=== PATIENT | female | born 1955 | race Caucasian/White ===

== ENCOUNTER 2019-09-27 17:19 | Emergency (ER) | payer MEDICARE, SELFPAY ==
--- NOTE | ~2019-09-27 | CT_ITS ---
EXAMINATION: CTA brain carotid EXAM DATE: 09/27/2019 18:54 INDICATION: Dizziness. TECHNIQUE: Noncontrast head CT. Spiral CTA of the carotid arteries was performed with intravenous i njection 100 cc of Omnipaque 350. Axial, coronal, sagittal reformatted images reviewed. Additional r eformatted images created on dedicated 3-D workstation. NASCET comparable standard used to assess th e degree of arterial stenosis. Spiral CT angiogram cerebral arteries performed with the same intrave nous injection of contrast. Source images of the brain CTA transferred to dedicated workstation for 3 -D rotational image creation. Coronal, sagittal maximum intensity pixel images also reviewed. The d ose-length product (DLP) for this examination was 1661.61 mGy-cm. The exposure was tailored accordi ng to patient size, and iterative reconstruction (ASIR) was used as additional dose reduction techniq ue. There is no prior study for comparison. FINDINGS: There is mild left carotid and minimal right carotid bulb arterial sclerosis, with 0% steno sis bilaterally. The vertebral arteries are codominant. There is right-sided posterior communicating artery dominant posterior cerebral artery. There is no carotid or vertebral basilar arterial disse ction or fibromuscular dysplasia. There are no cerebral artery aneurysms. There is symmetric cerebral artery arborization. The sagittal, transverse and sigmoid sinuses enhance normally, no venous sinus thrombosis. Internal cerebral veins also enhance normally. There is no acute intraparenchymal hemorrhage. No evidence of intraparenchymal brain mass lesion. N o evidence of acute infarction. There is mild periventricular and subcortical hypodensity, nonspecifi c but probably related to small vessel ischemic disease. There is intracranial carotid arterioscler osis. There is no mass effect or midline shift. There is no obstructive hydrocephalus suspected. T here are no extra-axial collections. There are no calvarial acute fractures. Moderate to severe cer vical disc disease. IMPRESSION: 1. No cervical arterial dissection or cerebral artery aneurysm. 2. Bilateral carotid 0% stenosis. Reviewed, dictated and finalized at location A.
[2019-09-27 17:22] VITALS: BP 164/75; PULSE 101; RESP 18; TEMP 36.9; O2SAT 97
[2019-09-27] MEDS: SODIUM CHLORIDE 0.9% IV 1,000 ML 999 ML IV CONT ×2 (17:56→18:50)
[2019-09-27] MEDS: MECLIZINE HCL 25 MG TABLET PO (17:59)
[2019-09-27 18:08] LABS: Basophils Absolute Auto 0.1 K/mm3 (0.0-0.1); Basophils Percent Auto 0.7 % (0.2-1.2); Eosinophils Absolute Auto 0.4 K/mm3 (0-0.3); Eosinophils Percent Auto 4.3 % (0-4.4); Hemoglobin 13.6 g/dL (12.0-15.0); Immature Granulocyte Absolute 0.02 K/mm3 (0.00-0.031); Immature Granulocyte Percent A 0.2 % (0-0.5); Lymphocytes Absolute Auto 2.29 K/mm3 (0.9-3.2); Lymphocytes Percent Auto 26.7 % (18.3-44.2); Mean Corpuscular HGB Conc 34.9 g/dl (32-36); Mean Corpuscular Hemoglobin 32.9 pg (26-34); Mean Corpuscular Volume 94.2 fl (80-100); Mean Platelet Volume 8.9 fl (7.4-10.4); Monocytes Absolute Auto 0.6 K/mm3 (0.1-0.6); Monocytes Percent Auto 7.3 % (2.6-8.5); Neutrophils Absolute Auto 5.2 K/mm3 (1.3-6.7); Neutrophils Percent Auto 60.8 % (45.5-73.1); Platelet Count Result 256 k/mm3 (150-375); Red Blood Count 4.14 M/mm3 (4.2-5.4); Red Cell Distribution Width 12.1 % (11.5-14.5); White Blood Count 8.6 K/mm3 (4.5-10.0)
[2019-09-27 18:19] LABS: Alanine Aminotransferase 23 U/L (4-35); Albumin Level 4.8 g/dL (3.5-5.1); Alkaline Phosphatase 97 U/L (38-126); Aspartate Amino Transferase 35 U/L (14-36); Bilirubin,Total 0.4 mg/dL (0.2-1.3); Blood Urea Nitrogen 28 mg/dL (7-17); Calcium 9.8 mg/dL (8.4-10.2); Carbon Dioxide 22 mmol/L (22-30); Chloride 107 mmol/L (98-107); Estimated CRCL calculation 61 ml/min; Estimated Glomerular Filt Rate > 60; Glucose 118 mg/dL (65-105); Potassium 3.9 mmol/L (3.4-5.0); Sodium 138 mmol/L (137-145)
--- NOTE | 2019-09-27 18:29 | ECG_ITS ---
Measurements Intervals [place] Rate: 95 P: 63 AK: 142 QRS: -14 QRSD: 86 T: 26 QT: 349 QTc: 440 Interpretive Statements SINUS RHYTHM POSSIBLE LEFT ATRIAL ENLARGEMENT DELAYED PRECORDIAL R/S TRANSITION BORDERLINE ECG Electronically Signed On 09-28-2019 7:10:28 CDT by Gumaro Ramirez D.O.
--- NOTE | 2019-09-27 18:34 | ED.DIZZY ---
HPI - Dizziness General Chief Complaint: Dizziness Stated Complaint: Hi BP Time Seen by Provider: 09/27/19 17:26 Source: patient Mode of arrival: ambulatory Limitations: no limitations History of Present Illness HPI Narrative: Patient is a 63-year-old female who presents to emergency department for evaluation of dizziness for the last 3 days patient notes intermittent dizziness with a sensation of the room spinning with associated nausea. Patient denies injury trauma does note she has had some left ear discomfort and pain and that the symptoms seem to be worse with looking to the left. Patient denies similar occurrence in the past. Patient on arrival to emergency department in no distress denying any pain. Patient has not taken anything further symptoms Related Data Home Medications Medication Instructions Recorded Confirmed Mirapex 09/27/19 Tumersaid 09/27/19 cholecalciferol (vitamin D3) 125 mcg PO DAILY 09/27/19 [Vitamin D3] naproxen sodium [Aleve] 220 mg PO Q12H 09/27/19 Allergies Allergy/AdvReac Type Severity Reaction Status Date / Time cortisone Allergy Joint Pain Verified 09/27/19 17:36 tetracycline Allergy Joint Pain Verified 09/27/19 17:36 Review of Systems Review of Systems: All systems reviewed & are unremarkable except as noted in HPI and below PMFSH Social History Social History Gender identity (if verbalized by the patient): Female Exam Narrative: Exam Narrative: GENERAL: Well-appearing, well-nourished, and in no acute distress. HEAD: Normocephalic, atraumatic. EYES: PERRLA and EOMI. ENT: Nares clear, no rhinorrhea or epistaxis. Mucous membranes moist. Oropharynx without tonsillar hypertrophy exudate or other lesions. Bilateral TMs pearly flowers nonbulging NECK: Supple. No adenopathy or masses. No carotid bruits or JVD CHEST: Clear to auscultation. No respiratory distress. No wheezes rales or rhonchi HEART: Regular rate and rhythm. No murmur heard. Normal peripheral pulses. ABDOMEN: Soft, nontender, nondistended EXTREMITIES: Normal range of motion. No edema. SKIN: Warm, dry, no rash. NEURO: No focal deficits. Alert and oriented x3. Cranial nerves II through XII grossly intact. Normal speech and gait PSYCH: Normal mood and affect. Course Course Emergency Course: Patient in the room in no distress aware of case findings treatment plan and diagnosis agreeing to follow-up as directed or to return if symptoms worsen or concerns Vital Signs Vital signs: Vital Signs Temperature 98.5 F 09/27/19 17:22 Pulse Rate 101 H 09/27/19 17:22 Respiratory Rate 18 09/27/19 17:22 Blood Pressure 164/75 H 09/27/19 17:22 Pulse Oximetry 97 09/27/19 17:22 Temperature 98.5 F 09/27/19 17:22 Pulse Rate 90 09/27/19 18:52 Respiratory Rate 20 09/27/19 18:52 Blood Pressure 133/62 09/27/19 18:52 Pulse Oximetry 99 09/27/19 18:52 MDM - Dizziness MDM Narrative Medical decision making narrative: Patient's dizziness is intermittent and mild in nature. There are no focal neurological deficits on exam. Subarachnoid hemorrhage is felt to be unlikey at this time. There is no history of fever, and neck is supple without meningismus, making meningitis unlikely. No traumatic history or signs of trauma on exam. Risk factors for CVA, risk factors reviewed. NO ocular signs on exam and in history to suggest acute glaucoma. Patients dizziness is felt to be a reasonable candidate for outpatient evaluation Lab Data Result diagrams: 09/27/19 18:02 09/27/19 18:02 Labs: Lab Results 09/27/19 09/27/19 09/27/19 Range/Units 18:02 18:02 18:02 WBC 8.6 (4.5-10.0) K/mm3 RBC 4.14 L (4.2-5.4) M/mm3 Hgb 13.6 (12.0-15.0) g/dL Hct 39.0 (37.0-47.0) % MCV 94.2 (80-100) fl MCH 32.9 (26-34) pg MCHC 34.9 (32-36) g/dl RDW 12.1 (11.5-14.5) % Plt Count 256 (150-375) k/mm3 M
[2019-09-27 18:52] VITALS: BP 133/62; PULSE 90; RESP 20; O2SAT 99
[2019-09-27 19:22] LABS: Troponin I < 0.012 ng/mL (0.000-0.034)
[2019-09-27 20:09] LABS: Add Urine Microscopic? YES; Appearance Urine Clear (Clear); Bilirubin Urine Negative (Negative); Blood Urine Negative (Negative); Color Urine Colorless (Yellow); Glucose Urine UA Negative (Negative); Ketones Urine Negative (Negative); Leukocyte Esterase Ur Trace LEU/UL (Negative); Nitrate Urine Negative (Negative); Protein Urine Negative (Negative); RBC Urine 0-2 /hpf (0-2); Squamous Epithelial Cell Urine Occasional /hpf (Few); Urobilinogen Urine Negative mg/dL (<2.0); WBC Urine 0-3 /hpf
[2019-09-27 20:10] LABS: Specific Grav Ur 1.033 (1.001-1.035)
--- NOTE | 2019-09-27 21:05 | PC.NURSE ---
2033 pt walked around nursed station tolerated well dizzy getting up and looking down other olea she was fine to walk
[2019-09-27 21:06] VITALS: BP 148/73; PULSE 84; RESP 20; O2SAT 98
== END 2019-09-27 21:07 | disposition home or self-care (01) ==
PROVIDERS: Emergency Medicine Emergency Medical Services; Emergency Provider Emergency Medicine; PCP Internal Medicine
DX: R42 Dizziness and giddiness (principal); R94.31 Abnormal electrocardiogram [ECG] [EKG]
CPT/HCPCS: 36415; 70496; 70498; 80053; 81001; 84484; 85025; 93005; 96361; 96374; 99284; A9270; J3360; J7030; Q9967

== ENCOUNTER 2019-09-29 06:54 | Outpatient (CLI) | payer MEDICARE, SELFPAY ==
--- NOTE | ~2019-09-29 | XR_ITS ---
EXAMINATION: XR knee LT 3V EXAM DATE: 09/29/2019 07:44 INDICATION: No known recent injury provided at this time. Pain of the left knee. TECHNIQUE: Three projections of the left knee. There is no prior study for comparison. FINDINGS: No evidence osteochondral defect or joint body in the left knee joint. There is moderate patellofemoral and medial tibiofemoral compartment primary osteoarthritis. There are no acute fractur es or dislocations identified. There is no subcutaneous gas. The soft tissue is unremarkable. The re are no radiopaque foreign bodies. IMPRESSION: Moderate left knee osteoarthritis. Reviewed, dictated and finalized at location B.
--- NOTE | ~2019-09-29 | XR_ITS ---
EXAMINATION: XR lumbar spine 2-3V EXAM DATE: 09/29/2019 07:44 INDICATION: No known recent injury provided at this time. Pain of the low back. TECHNIQUE: Lumber spine frontal, lateral, lateral L5-S1 projections for interpretation. There is no prior study for comparison. FINDINGS: Mild lumbar levoscoliosis. Mild diffuse lumbar disc disease. There is 3 mm anterolisthesis L4 on L5 and 2 mm anterolisthesis L2 on L3. There are small endplate osteophytes. Moderate lumbar fa cet arthropathy. No spondylolysis. No endplate erosive change. Sacrum, sacroiliac joints, sacral arcu ate lines are intact. Paraspinal soft tissue is unremarkable. IMPRESSION: Mild lumbar disc disease, moderate arthropathy. Reviewed, dictated and finalized at location B.
--- NOTE | ~2019-09-29 | XR_ITS ---
EXAMINATION: XR hip LT min 2V EXAM DATE: 09/29/2019 07:44 INDICATION: No known recent injury provided at this time. Pain of the left hip. TECHNIQUE: Left hip frontal, crosstable lateral and 'frog-leg' projections for interpretation. There is no prior study for comparison. FINDINGS: Smooth left hip femoral head contour, no radiographic evidence of avascular necrosis. Ther e is mild left hip primary osteoarthritis. There are no acute fractures or dislocations identified. There is no subcutaneous gas. The soft tissue is unremarkable. There are no radiopaque foreign bod ies. IMPRESSION: Mild left hip osteoarthritis. Reviewed, dictated and finalized at location B.
[2019-09-29 08:05] LABS: Hemoglobin A1C 5.9 % (<5.7)
[2019-09-29 08:07] LABS: Alanine Aminotransferase 22 U/L (4-35); Albumin Level 4.2 g/dL (3.5-5.1); Alkaline Phosphatase 93 U/L (38-126); Aspartate Amino Transferase 32 U/L (14-36); Bilirubin,Total 0.3 mg/dL (0.2-1.3); Blood Urea Nitrogen 22 mg/dL (7-17); Calcium 9.3 mg/dL (8.4-10.2); Carbon Dioxide 27 mmol/L (22-30); Chloride 108 mmol/L (98-107); Cholesterol 208 mg/dL (0-200); Estimated Glomerular Filt Rate > 60; Glucose 110 mg/dL (65-105); HDL Direct 39 mg/dL; Potassium 3.8 mmol/L (3.4-5.0); Sodium 142 mmol/L (137-145); Triglycerides 147 mg/dL (<150)
[2019-09-29 08:17] LABS: LDL Cholesterol Direct 130 mg/dL
[2019-09-29 08:34] LABS: Free T4 Free Thyroxine 1.04 ng/mL (0.78-2.19)
[2019-10-02 04:24] LABS: Insulin Level Total 9.8 uIU/mL (<=19.6)
[2019-10-02 05:44] LABS: Homocysteine 12.8 umol/L (<10.4)
== END 2019-09-29 06:55 | disposition home or self-care (01) ==
PROVIDERS: PCP Internal Medicine; Visit Provider Internal Medicine
DX: R73.9 Hyperglycemia, unspecified (principal); Z79.899 Other long term (current) drug therapy; Z13.220 Encounter for screening for lipoid disorders; Z82.49 Family history of ischemic heart disease and other diseases of the circulatory system; G25.81 Restless legs syndrome; M51.36 Other intervertebral disc degeneration, lumbar region; M17.12 Unilateral primary osteoarthritis, left knee; M16.12 Unilateral primary osteoarthritis, left hip
CPT/HCPCS: 36415; 72100; 73502; 73562; 80053; 80061; 82306; 83036; 83090; 83525; 84439; 84443

== ENCOUNTER 2019-10-02 08:17 | Outpatient (CLI) | payer MEDICARE, SELFPAY ==
--- NOTE | ~2019-10-02 | MM_ITS ---
EXAMINATION: MM screening [facility] BI w heraclio HISTORY: Screening mammogram TECHNIQUE: Craniocaudal and mediolateral oblique 3-D tomosynthesis images were obtained and synthetic 2-D images were generated. CAD analysis was submitted and interpreted. COMPARISON: No prior mammogram is available for comparison at this institution. BREAST PARENCHYMAL COMPOSITION: There are scattered areas of fibroglandular density. FINDINGS: There is no mammographic evidence for malignancy in the left breast. There are focal asymme tries in the upper outer quadrant of the right breast. IMPRESSION: 1. Focal right breast asymmetries, upper outer quadrant. 2. Additional mammographic views and possible breast ultrasound are recommended. BI-RADS Category 0: Incomplete: Needs additional imaging evaluation. Reviewed, dictated and finalized at location A. IMPRESSION: 1. Focal right breast asymmetries, upper outer quadrant. 2. Additional mammographic views and possible breast ultrasound are recommended . BI-RADS Category 0: Incomplete: Needs additional imaging evaluation.
== END 2019-10-02 08:18 | disposition home or self-care (01) ==
LOC: ANHIMG 08:21
PROVIDERS: PCP Internal Medicine; Visit Provider Internal Medicine
DX: Z12.31 Encounter for screening mammogram for malignant neoplasm of breast (principal); R92.8 Other abnormal and inconclusive findings on diagnostic imaging of breast
CPT/HCPCS: 77063; 77067

== ENCOUNTER 2019-10-16 12:45 | Outpatient (CLI) | payer MEDICARE, SELFPAY ==
--- NOTE | ~2019-10-16 | MMUS_ITS ---
EXAMINATION: MM diagnostic himanshu RT w heraclio, US breast RT limited HISTORY: Right breast asymmetries on screening mammogram TECHNIQUE: Additional 3-D tomosynthesis images of the right breast were performed and synthetic 2-D i mages were generated. CAD analysis was submitted and interpreted. High resolution limited right breas t ultrasound was performed. COMPARISON: 10/02/2019 FINDINGS: MAMMOGRAPHIC FINDINGS: No definite persistent asymmetry is identified with spot compression views of the right breast. There is no suspicious calcification or architectural distortion. ULTRASOUND: A 4 mm cyst is present at the 12:00 location 4 cm from the nipple. There is a benign-appearing intram ammary lymph node at the 11:00 location 6 cm from the nipple which measures 14 mm x 9 mm. No suspicio us cystic or solid mass is identified. IMPRESSION: 1. No mammographic or sonographic evidence of malignancy. 2. Recommend routine screening mammography in one year. BI-RADS Category 2: Benign finding(s). Reviewed, dictated and finalized at location A. IMPRESSION: 1. No mammographic or sonographic evidence of malignancy. 2. Recommend routine screening mammography in one year. BI-RADS Category 2: Benign finding(s).
== END 2019-10-16 12:46 | disposition home or self-care (01) ==
PROVIDERS: PCP Internal Medicine; Visit Provider Internal Medicine
DX: R92.8 Other abnormal and inconclusive findings on diagnostic imaging of breast (principal)
CPT/HCPCS: 76642; 77061; 77065; G0279

== ENCOUNTER 2019-12-18 06:50 | Outpatient (CLI) | payer MEDICARE, SELFPAY ==
[2019-12-18 07:15] LABS: Potassium 4.2 mmol/L (3.4-5.0)
[2019-12-18 07:25] LABS: Anion Gap 5 mmol/L (8-16); Blood Urea Nitrogen 19 mg/dL (7-17); Calcium 9.4 mg/dL (8.4-10.2); Carbon Dioxide 30 mmol/L (22-30); Chloride 104 mmol/L (98-107); Cholesterol 207 mg/dL (0-200); Estimated Glomerular Filt Rate > 60; Glucose 109 mg/dL (65-105); HDL Direct 45 mg/dL; Sodium 139 mmol/L (137-145); Triglycerides 259 mg/dL (<150)
[2019-12-18 07:26] LABS: LDL Cholesterol Direct 117 mg/dL
== END 2019-12-18 06:51 | disposition home or self-care (01) ==
PROVIDERS: PCP Internal Medicine; Visit Provider Internal Medicine
DX: E78.2 Mixed hyperlipidemia (principal); Z79.899 Other long term (current) drug therapy
CPT/HCPCS: 36415; 80048; 80061

== ENCOUNTER 2020-01-30 07:01 | Outpatient (CLI) | payer MEDICARE, SELFPAY ==
--- NOTE | ~2020-01-30 | XR_ITS ---
EXAMINATION: XR lumbar spine 6V w bending, XR pelvis 1-2V DATE: 01/30/2020 07:32 INDICATION: Low back and bilateral leg pain TECHNIQUE: 1. Anteroposterior, lateral in neutral, flexion and extension, bilateral oblique and cone-down latera l lumbosacral views of the lumbar spine were obtained. COMPARISON: 09/29/2019 FINDINGS: Lumbar spine: Unchanged mild lumbar levocurvature. 4 mm anterolisthesis L4 on L5 which decreases to 2 mm with both flexion and extension. 2 mm anterolisthesis L3 on L4 which is unchanged with flexion and extension. V ertebral body heights are normal. Mild to moderate right-sided predominant disc height loss at L2-L3 through L4-L5 and mild disc height loss at L1-L2. No pars interarticularis defects. Severe facet oste oarthritis on the right at L3-L4 and bilaterally at L4-L5 and L5-S1. Mild to moderate facet osteoarth ritis the remainder of the lumbar spine. Small calcification projecting over the liver likely sequela of old granulomatous disease versus less likely a gallstone. Pelvis: Pelvic alignment is normal. No fracture or suspected avascular necrosis. Minimal osteoarthritis at th e bilateral hip and sacroiliac joints. Small enthesophytes along the anterior iliac crests and at the bilateral greater trochanters.. IMPRESSION: 1. Moderate lumbar spondylosis. Reviewed, dictated and finalized at location B. IMPRESSION: 1. Moderate lumbar spondylosis.
[2020-01-30 08:14] LABS: Hemoglobin A1C 5.6 % (<5.7)
[2020-01-30 08:22] LABS: Cholesterol 229 mg/dL (0-200); HDL Direct 46 mg/dL; Triglycerides 173 mg/dL (<150)
[2020-01-30 08:33] LABS: LDL Cholesterol Direct 139 mg/dL
== END 2020-01-30 07:02 | disposition home or self-care (01) ==
PROVIDERS: PCP Internal Medicine; Visit Provider Internal Medicine
DX: R73.03 Prediabetes (principal); E78.2 Mixed hyperlipidemia; M54.42 Lumbago with sciatica, left side; G89.29 Other chronic pain; M47.896 Other spondylosis, lumbar region
CPT/HCPCS: 36415; 72114; 72170; 80061; 83036

== ENCOUNTER 2020-02-01 09:30 | Outpatient (CLI) | payer MEDICARE, SELFPAY ==
[2020-02-01 10:04] LABS: CRP 1.2 mg/dL (<1.0)
[2020-02-01 10:05] LABS: Rheumatoid Factor < 8.6 IU/ML (<12)
[2020-02-01 11:09] LABS: Erythrocyte Sedimentation Rate 37 mm/hr (0-20)
[2020-02-05 11:42] LABS: Anti Cyclic Citrullinated Pept <16 Units (<20)
== END 2020-02-01 09:31 | disposition home or self-care (01) ==
LOC: ANHLAB 09:32
PROVIDERS: PCP Internal Medicine; Visit Provider Internal Medicine
DX: M13.0 Polyarthritis, unspecified (principal); M54.16 Radiculopathy, lumbar region
CPT/HCPCS: 36415; 85652; 86140; 86200; 86430

== ENCOUNTER 2021-04-30 06:58 | Outpatient (CLI) | payer MEDICARE, SELFPAY ==
[2021-04-30 07:55] LABS: Basophils Percent Auto 0.5 % (0.2-1.2); Eosinophils Absolute Auto 0.2 K/mm3 (0-0.3); Eosinophils Percent Auto 3.3 % (0-4.4); Hematocrit 37.9 % (37.0-47.0); Hemoglobin 12.9 g/dL (12.0-15.0); Immature Granulocyte Absolute 0.01 K/mm3 (0.00-0.031); Immature Granulocyte Percent A 0.2 % (0-0.5); Lymphocytes Absolute Auto 1.77 K/mm3 (0.9-3.2); Lymphocytes Percent Auto 29.1 % (18.3-44.2); Mean Corpuscular Volume 96.9 fl (80-100); Mean Platelet Volume 8.6 fl (7.4-10.4); Monocytes Absolute Auto 0.5 K/mm3 (0.1-0.6); Monocytes Percent Auto 8.4 % (2.6-8.5); Neutrophils Absolute Auto 3.6 K/mm3 (1.3-6.7); Neutrophils Percent Auto 58.5 % (45.5-73.1); Platelet Count Result 206 k/mm3 (150-375); Red Blood Count 3.91 M/mm3 (4.2-5.4); Red Cell Distribution Width 12.3 % (11.5-14.5); White Blood Count 6.1 K/mm3 (4.5-10.0)
[2021-04-30 08:16] LABS: Alanine Aminotransferase 31 U/L (4-35); Albumin Level 4.3 g/dL (3.5-5.1); Alkaline Phosphatase 93 U/L (38-126); Anion Gap 9 mmol/L (8-16); Aspartate Amino Transferase 36 U/L (14-36); Bilirubin,Total 0.4 mg/dL (0.2-1.3); Blood Urea Nitrogen 33 mg/dL (7-17); Calcium 9.6 mg/dL (8.4-10.2); Carbon Dioxide 28 mmol/L (22-30); Chloride 104 mmol/L (98-107); Cholesterol 207 mg/dL (0-200); Estimated Glomerular Filt Rate > 60; Glucose 111 mg/dL (65-110); HDL Direct 55 mg/dL; Potassium 4.7 mmol/L (3.4-5.0); Sodium 141 mmol/L (137-145); Triglycerides 102 mg/dL (<150)
[2021-04-30 08:27] LABS: LDL Cholesterol Direct 103 mg/dL
[2021-04-30 08:31] LABS: Hemoglobin A1C 5.7 % (<5.7)
[2021-04-30 09:38] LABS: Add Urine Microscopic? YES; Appearance Urine Clear (Clear); Bilirubin Urine Negative (Negative); Blood Urine 1+ (Negative); Color Urine Yellow (Yellow); Glucose Urine UA Negative (Negative); Ketones Urine Negative (Negative); Leukocyte Esterase Ur 2+ LEU/UL (Negative); Mucus Urine Rare /lpf; Nitrate Urine Negative (Negative); Protein Urine Negative (Negative); Specific Grav Ur 1.028 (1.001-1.035); Squamous Epithelial Cell Urine Few /hpf (Few); Urobilinogen Urine Negative mg/dL (<2.0); WBC Urine 16-20 /hpf
[2021-04-30 10:01] LABS: Free T4 Free Thyroxine 0.99 ng/mL (0.78-2.19); Vitamin D 25 Hydroxy 67.1 ng/mL
== END 2021-04-30 06:59 | disposition home or self-care (01) ==
PROVIDERS: PCP Internal Medicine; Visit Provider Internal Medicine
DX: R73.03 Prediabetes (principal); Z51.81 Encounter for therapeutic drug level monitoring; Z79.899 Other long term (current) drug therapy; E78.2 Mixed hyperlipidemia
CPT/HCPCS: 36415; 80053; 80061; 81001; 82306; 83036; 84439; 84443; 85025; 87086; 87088

== ENCOUNTER 2021-12-25 07:50 | Outpatient (CLI) | payer MEDICARE, SELFPAY ==
--- NOTE | ~2021-12-25 | MM_ITS ---
EXAMINATION: MM screening [facility] BI w heraclio HISTORY: Screening mammogram TECHNIQUE: Craniocaudal and mediolateral oblique 3-D tomosynthesis images were obtained and synthetic 2-D images were generated. CAD analysis was submitted and interpreted. COMPARISON: 10/16/2019, 10/02/2019, 02/11/2017 BREAST PARENCHYMAL COMPOSITION: There are scattered areas of fibroglandular density. FINDINGS: RIGHT BREAST: There is no suspicious mass, calcification, or architectural distortion to suggest michelle gnancy. There has been no significant interval change. LEFT BREAST: An asymmetry is present in the posterior third of the breast just below the nipple axis on the mediolateral oblique view. IMPRESSION: 1. Left breast asymmetry. 2. Additional mammographic views and possible breast ultrasound are recommended. BI-RADS Category 0: Incomplete: Needs additional imaging evaluation. Reviewed, dictated and finalized at location A. IMPRESSION: 1. Left breast asymmetry. 2. Additional mammographic views and possible breast ultrasound are recommended . BI-RADS Category 0: Incomplete: Needs additional imaging evaluation.
== END 2021-12-25 07:51 | disposition home or self-care (01) ==
PROVIDERS: PCP Internal Medicine; Visit Provider Internal Medicine
DX: Z12.31 Encounter for screening mammogram for malignant neoplasm of breast (principal); R92.8 Other abnormal and inconclusive findings on diagnostic imaging of breast
CPT/HCPCS: 77063; 77067

== ENCOUNTER 2022-01-12 11:41 | Outpatient (CLI) | payer MEDICARE, SELFPAY ==
--- NOTE | ~2022-01-12 | MMUS_ITS ---
EXAMINATION: MM diagnostic himanshu LT w heraclio, US breast LT complete HISTORY: Follow-up left breast asymmetry TECHNIQUE: Additional 3-D tomosynthesis images of the left breast were performed and synthetic 2-D im ages were generated. CAD analysis was submitted and interpreted. High resolution complete left breast ultrasound was performed. COMPARISON: Comparison to multiple prior studies sequentially, with oldest reviewed study dated 12/2016. BREAST PARENCHYMAL COMPOSITION: Breast composed of scattered areas of fibroglandular density FINDINGS: MAMMOGRAPHIC FINDINGS: There are no suspicious masses, calcifications or architectural distortion in the left breast to sugg est malignancy. ULTRASOUND: Limited left breast ultrasound: Normal heterogeneous echotexture without focal solid or cystic mass. IMPRESSION: 1. No evidence for malignancy in the left breast. 2. Routine yearly screening mammogram and regular clinical breast examination are recommended. BI-RADS Category 1: Negative Reviewed, dictated and finalized at location A. IMPRESSION: 1. No evidence for malignancy in the left breast. 2. Routine yearly screening mammogram and regular clinical breast examination a re recommended. BI-RADS Category 1: Negative
== END 2022-01-12 11:42 | disposition home or self-care (01) ==
LOC: ANHIMG 11:43
PROVIDERS: PCP Internal Medicine; Visit Provider Internal Medicine
DX: R92.8 Other abnormal and inconclusive findings on diagnostic imaging of breast (principal)
CPT/HCPCS: 76641; 77061; 77065; G0279

== ENCOUNTER 2022-03-30 08:21 | Emergency (ER) | payer MEDICARE, SELFPAY ==
--- NOTE | ~2022-03-30 | XR_ITS ---
EXAMINATION: XR chest 2V DATE: 03/30/2022 08:51 INDICATION: Nonproductive cough TECHNIQUE: PA and lateral views of the chest were obtained. COMPARISON: None FINDINGS: Patchy airspace opacities in the right lower lung zone concerning for pneumonia. No pleural effusion or pneumothorax. Heart is normal with paracardial fat pads. Moderate thoracolumbar spondylosis. IMPRESSION: 1. Patchy airspace opacity in the right lower lung zone concerning for pneumonia with differential in cluding atelectasis. Reviewed, dictated and finalized at location A. RISK MANAGEMENT CONSULTANT IMPRESSION: 1. Patchy airspace opacity in the right lower lung zone concerning for pneumoni a with differential including atelectasis.
[2022-03-30 08:24] VITALS: BP 159/80; PULSE 89; RESP 16; TEMP 36.4; O2SAT 98
--- NOTE | 2022-03-30 08:44 | ECG_ITS ---
Measurements Intervals [place] Rate: 104 P: 62 [place]: 147 QRS: 12 QRSD: 72 T: 29 QT: 322 QTc: 424 Interpretive Statements SINUS TACHYCARDIA NONSPECIFIC ST ABNORMALITY BORDERLINE ECG COMPARED TO ECG 09/27/2019 17:28:31 HEART RATE HAS INCREASED Electronically Signed On 03-30-2022 16:55:40 HOT MOLDER by Brian Cox M.D.
--- NOTE | 2022-03-30 08:46 | ED.URI ---
HPI - URI/Sore Throat General Chief Complaint: Upper Respiratory Infection Stated Complaint: upper respiratory symptoms for a month Time Seen by Provider: 03/30/22 08:39 History of Present Illness HPI Narrative: Pt presents with cough and SOB with coughing for a month. Pt says she keeps thinking it will resolve but it hasn't. Pt denies CP or fever or exertional SOB mainly with cough. Pt denies Hx of CHF or any fluid retention or weight gain. Related Data Home Medications Medication Instructions Recorded Confirmed Tumersaid 09/27/19 06/23/21 cholecalciferol (vitamin D3) 125 125 mcg PO DAILY 09/27/19 06/23/21 mcg (5,000 unit) tablet (Vitamin D3) naproxen sodium 220 mg capsule 220 mg PO Q12H 09/27/19 06/23/21 (Aleve) pramipexole 1 mg tablet (Mirapex) 1 mg PO BID 09/28/19 06/23/21 cyanocobalamin (vitamin B-12) 1,000 mcg PO DAILY 10/02/19 06/23/21 1,000 mcg tablet (Vitamin B-12) Allergies Allergy/AdvReac Type Severity Reaction Status Date / Time cortisone Allergy Joint Pain Verified 03/30/22 08:38 tetracycline Allergy Joint Pain Verified 03/30/22 08:38 Review of Systems Review of Systems: All systems reviewed & are unremarkable except as noted in HPI and below PMFSH Past Medical History Medical History (Updated 03/30/22 @ 10:02 by Jorge Pulido III, ) BMI 34.0-34.9,adult BPPV (benign paroxysmal positional vertigo) Chronic low back pain with left-sided sciatica spondylosis rima L3/L4, L4/L5 facet osteoarthritis at L3/L4, L4/L5, L5/S1 Colonic polyp DJD (degenerative joint disease) Eczema Elevated homocysteine Encounter for Medicare annual wellness exam Encounter for routine adult health examination without abnormal findings Familial hypercholesterolemia History of kidney stones History of pneumonia History of tobacco abuse Per Dr. Prabhakar- Remote History Knee pain, left Mixed hyperlipidemia Narcolepsy Need for influenza vaccination On intermediate card tender drug therapy Polyarthritis Pre-diabetes Restless leg Skin cancer Statin intolerance Surgical History Surgical History History of fusion of cervical spine History of tonsillectomy Family History Family History Mother Diabetes mellitus CHF (congestive heart failure) Pacemaker Father Aneurysm Cerebrovascular accident Hx of CABG Social History Social History Years smoked: 25 Smoking status: Former smoker Smoking end date: 04/05/99 Gender identity (if verbalized by the patient): Female Exam Const: General: healthy appearing and no acute distress Nutritional Appearance: well nourished Orientation/consciousness: patient oriented x3 Limitations: no limitations HENMT: Head: normal to inspection Neck: Neck: normal visual inspection and no lymphadenopathy Chest: Chest palpation & inspection: normal inspection of the chest Resp: Effort & Inspection: normal respiratory effort Auscultation: crackles on the right Cardio: Rate: regular rate Rhythm: regular rhythm GI: GI Palp: Yes Soft to palpation and No Tenderness to palpation present (GI) Auscultation: normal bowel sounds Skin: General skin exam: normal color Neuro: General: patient oriented x3, moves all extremities and no focal motor deficits Cranial nerves: Yes Nystagmus not present Speech: normal speech Gait exam (Neuro): Normal gait present Extrem: General: normal to inspection and no clubbing, cyanosis or edema Psych: Mental Status: mental status grossly normal Affect: normal affect Attitude: cooperative Course Vital Signs Vital signs: Vital Signs Temperature 97.6 F 03/30/22 08:24 Pulse Rate 89 03/30/22 08:24 Respiratory Rate 16 03/30/22 08:24 Blood Pressure 159/80 H 03/30/22 08:24 Pulse Oximetry 98 03/30/22 08:24 Temperature 97.6 F 03/30/22 08:24 Pulse Rat
[2022-03-30 08:50] VITALS: PULSE 89; RESP 20
[2022-03-30] MEDS: IPRATROPIUM BR 0.02% INH SOLN 0.5 MG/2.5 ML VIAL INHALATION (08:55)
[2022-03-30] MEDS: ALBUTEROL SULFATE NEB 2.5 MG/3 ML INH 5 MG INHALATION (08:55)
[2022-03-30 09:10] LABS: Influenza A QL RT-PCR Negative (Negative); Influenza B QL RT-PCR Negative (Negative); SARS-CoV-2 RNA PCR Negative
[2022-03-30 09:10] LABS: Basophils Percent Auto 0.6 % (0.2-1.2); Eosinophils Absolute Auto 0.1 K/mm3 (0-0.3); Eosinophils Percent Auto 2.6 % (0-4.4); Hematocrit 38.1 % (37.0-47.0); Hemoglobin 12.8 g/dL (12.0-15.0); Immature Granulocyte Absolute 0.01 K/mm3 (0.00-0.031); Immature Granulocyte Percent A 0.2 % (0-0.5); Lymphocytes Absolute Auto 1.23 K/mm3 (0.9-3.2); Lymphocytes Percent Auto 24.5 % (18.3-44.2); Mean Corpuscular HGB Conc 33.6 g/dl (32-36); Mean Corpuscular Hemoglobin 33.1 pg (26-34); Mean Corpuscular Volume 98.4 fl (80-100); Mean Platelet Volume 8.6 fl (7.4-10.4); Monocytes Absolute Auto 0.6 K/mm3 (0.1-0.6); Monocytes Percent Auto 10.9 % (2.6-8.5); Neutrophils Absolute Auto 3.1 K/mm3 (1.3-6.7); Neutrophils Percent Auto 61.2 % (45.5-73.1); Platelet Count Result 160 k/mm3 (150-375); Red Blood Count 3.87 M/mm3 (4.2-5.4); Red Cell Distribution Width 12.7 % (11.5-14.5)
[2022-03-30 09:26] LABS: Alanine Aminotransferase 34 U/L (6-35); Albumin Level 4.4 g/dL (3.5-5.1); Alkaline Phosphatase 100 U/L (38-126); Anion Gap 6 mmol/L (8-16); Aspartate Amino Transferase 39 U/L (14-36); Bilirubin,Total 0.3 mg/dL (0.2-1.3); Blood Urea Nitrogen 20 mg/dL (7-17); Carbon Dioxide 26 mmol/L (22-30); Chloride 108 mmol/L (98-107); Estimated CRCL calculation 68 ml/min; Estimated Glomerular Filt Rate > 60; Glucose 101 mg/dL (65-110); Potassium 4.2 mmol/L (3.4-5.0); Sodium 140 mmol/L (137-145)
[2022-03-30 09:33] LABS: NT Pro B Type Natriuretic Pept 46 pg/mL (5-100)
[2022-03-30 09:42] VITALS: BP 150/81; PULSE 92; RESP 20; O2SAT 96
[2022-03-30 10:23] VITALS: BP 145/74; PULSE 96; RESP 20; O2SAT 97
== END 2022-03-30 10:25 | disposition home or self-care (01) ==
PROVIDERS: Emergency Provider Emergency Medicine; PCP Internal Medicine
DX: J18.9 Pneumonia, unspecified organism (principal); Z20.822 Contact with and (suspected) exposure to COVID-19; E78.01 Familial hypercholesterolemia; R73.03 Prediabetes; G25.81 Restless legs syndrome; Z98.1 Arthrodesis status; Z85.828 Personal history of other malignant neoplasm of skin; Z87.442 Personal history of urinary calculi; Z86.010 Personal history of colon polyps; Z87.891 Personal history of nicotine dependence; R00.0 Tachycardia, unspecified; R94.31 Abnormal electrocardiogram [ECG] [EKG]
CPT/HCPCS: 36415; 71046; 80053; 83880; 85025; 87636; 93005; 94640; 99283

== ENCOUNTER 2022-04-07 06:35 | Outpatient (CLI) | payer MEDICARE, SELFPAY ==
--- NOTE | ~2022-04-07 | XR_ITS ---
EXAMINATION: XR chest 2V DATE: 04/07/2022 14:13 INDICATION: Cough TECHNIQUE: PA and lateral views of the chest are obtained. COMPARISON: 03/30/2022 FINDINGS: Previously described right basilar airspace opacities persist but have improved. There are new airspace opacities of the left lung base. No pleural effusion or pneumothorax. The cardiomediasti nal silhouette is normal. There is moderate thoracic spondylosis. IMPRESSION: 1. Some persistent right basilar airspace opacities and new airspace opacities of the left lung base, likely pneumonia. Reviewed, dictated and finalized at location A. IATIVE SENIOR NP
[2022-04-07 07:42] LABS: Basophils Percent Auto 0.5 % (0.2-1.2); Eosinophils Absolute Auto 0.2 K/mm3 (0-0.3); Eosinophils Percent Auto 2.7 % (0-4.4); Hematocrit 37.2 % (37.0-47.0); Hemoglobin 12.6 g/dL (12.0-15.0); Immature Granulocyte Absolute 0.03 K/mm3 (0.00-0.031); Immature Granulocyte Percent A 0.4 % (0-0.5); Lymphocytes Absolute Auto 2.52 K/mm3 (0.9-3.2); Lymphocytes Percent Auto 29.8 % (18.3-44.2); Mean Corpuscular HGB Conc 33.9 g/dl (32-36); Mean Corpuscular Hemoglobin 33.2 pg (26-34); Mean Corpuscular Volume 98.2 fl (80-100); Mean Platelet Volume 8.1 fl (7.4-10.4); Monocytes Absolute Auto 0.6 K/mm3 (0.1-0.6); Monocytes Percent Auto 7.6 % (2.6-8.5); Platelet Count Result 226 k/mm3 (150-375); Red Blood Count 3.79 M/mm3 (4.2-5.4); Red Cell Distribution Width 12.4 % (11.5-14.5); White Blood Count 8.5 K/mm3 (4.5-10.0)
[2022-04-07 07:54] LABS: Alanine Aminotransferase 35 U/L (6-35); Alkaline Phosphatase 98 U/L (38-126); Anion Gap 6 mmol/L (8-16); Aspartate Amino Transferase 34 U/L (14-36); Bilirubin,Total 0.4 mg/dL (0.2-1.3); Blood Urea Nitrogen 19 mg/dL (7-17); Calcium 8.9 mg/dL (8.4-10.2); Carbon Dioxide 29 mmol/L (22-30); Chloride 107 mmol/L (98-107); Cholesterol 209 mg/dL (0-200); Estimated Glomerular Filt Rate > 60; Glucose 94 mg/dL (65-110); HDL Direct 44 mg/dL; Potassium 3.9 mmol/L (3.4-5.0); Sodium 142 mmol/L (137-145); Triglycerides 239 mg/dL (<150)
[2022-04-07 08:05] LABS: LDL Cholesterol Direct 111 mg/dL
[2022-04-07 08:32] LABS: Hemoglobin A1C 5.9 % (<5.7)
[2022-04-07 09:25] LABS: Free T4 Free Thyroxine 1.25 ng/mL (0.78-2.19); Vitamin D 25 Hydroxy 47.5 ng/mL
[2022-04-10 10:07] LABS: Apolipoprotein B 115 mg/dL (<90)
== END 2022-04-07 06:36 | disposition home or self-care (01) ==
PROVIDERS: PCP Internal Medicine; Visit Provider Internal Medicine
DX: R05.9 Cough, unspecified (principal); R91.8 Other nonspecific abnormal finding of lung field; E78.2 Mixed hyperlipidemia; E78.01 Familial hypercholesterolemia; R73.03 Prediabetes; Z13.21 Encounter for screening for nutritional disorder
CPT/HCPCS: 36415; 71046; 80053; 80061; 82172; 82306; 83036; 84439; 84443; 85025

== ENCOUNTER 2022-08-17 07:57 | Outpatient (CLI) | payer MEDICARE, SELFPAY ==
--- NOTE | ~2022-08-17 | NM_ITS ---
EXAMINATION: NM shar stress w perfusion DATE: 08/17/2022 12:22 INDICATION: Calcified coronary atherosclerosis. TECHNIQUE: Rest images were obtained following intravenous administration of 10.5 mCi Tc99m tetrofosm in (Myoview). The patient was infused intravenously with Lexiscan (regadenoson). Then, 33 mCi Tc99m t etrofosmin (Myoview) was administered intravenously, and stress images were obtained. Data was recons tructed into short axis and horizontal and vertical long axis SPECT images. Gated SPECT images were a lso obtained. COMPARISON: None. FINDINGS: There is no definite reversible or fixed perfusion abnormality to suggest ischemia or infar ction. There is no segmental wall motion abnormality. Left ventricular ejection fraction measures > 70%. IMPRESSION: 1. No definite ischemia or infarct. 2. Normal left ventricular ejection fraction measuring >70%. Reviewed, dictated and finalized at location A.
--- NOTE | 2022-08-17 08:08 | EST_ITS ---
Patient Info Name: Mary Guthrie Age: 66 years : 1955 Gender: Female Ht: 63 in Wt: 185 lbs BSA: 1.96 m2 Exam Date: 08/17/2022 9:07 AM Exam Location: [facility] Stress Patient Status: Outpatient Admit Date: 08/17/2022 Staff Ordering Physician: German Prabhakar MD Attending Provider: German Prabhakar MD Exercise Technologist: Shirin Camp RDCS Exercise Physician: Gumaro Ramirez DO Exam Type: CA stress shar w NM Study Info Indications R93.1 - Abnormal findings on diagnostic imaging of heart and coronary circulation A regadenoson stress test was performed. Summary 1. 1. Negative lexiscan stress test for ischemic ST changes by ECG criteria. 2. 2. Baseline hypertension. 3. 3. Nuclear scan to follow and will be reported separately. Please correlate with it. 4. 4. Patient informed of the above results. Protocol: Lexiscan Stress ECG Details Stage: REST Duration (min): 5 min : 19 sec HR (bpm): 66 SBP (mmHg): 148 DBP (mmHg): 88 Stage: REST Duration (min): 8 min : 11 sec HR (bpm): 75 SBP (mmHg): 148 DBP (mmHg): 88 Stage: STAGE 1 Duration (min): 1 min : 0 sec HR (bpm): 100 SBP (mmHg): 167 DBP (mmHg): 69 Stage: RECOVERY Duration (min): 1 min : 0 sec HR (bpm): 103 SBP (mmHg): 156 DBP (mmHg): 72 Stage: RECOVERY Duration (min): 2 min : 0 sec HR (bpm): 96 SBP (mmHg): 156 DBP (mmHg): 72 Stage: RECOVERY Duration (min): 3 min : 0 sec HR (bpm): 81 SBP (mmHg): 143 DBP (mmHg): 68 Stage: RECOVERY Duration (min): 3 min : 8 sec HR (bpm): 87 SBP (mmHg): 143 DBP (mmHg): 68 Rest HR: 75 bpm Peak HR: 106 bpm Rest Sys BP: 148 mmHg Peak Sys BP: 167 mmHg Max Pred HR: 152 bpm % Max Pred HR: 70 % Target HR: 129 bpm Max RPP: 17,702 bpm*mmHg Termination Reason: Completed protocol Cardiac Symptoms: None Total Time: 1 min : 0 sec Rest Beck BP: 88 mmHg Peak Beck BP: 69 mmHg Total Dose: 0.4 mg Resting ECG Sinus rhythm. Stress ECG No ST changes. Arrhythmias None. Report Signatures
== END 2022-08-17 07:58 | disposition home or self-care (01) ==
PROVIDERS: PCP Internal Medicine; Visit Provider Internal Medicine
DX: R93.1 Abnormal findings on diagnostic imaging of heart and coronary circulation (principal); I25.84 Coronary atherosclerosis due to calcified coronary lesion
CPT/HCPCS: 78452; 93017; A9502; J2785

== ENCOUNTER 2022-08-27 12:06 | Outpatient (CLI) | payer MEDICARE, SELFPAY ==
--- NOTE | ~2022-08-27 | XR_ITS ---
XR chest 2V 08/27/2022 12:26 Indication: Cough Procedure: 2 view chest Comparison: 04/07/2019 Findings: Heart size is normal. No focal air space disease, pulmonary edema, pleural effusion or susp ected pneumothorax. No acute osseous abnormality. There is mild thoracic spondylosis. Impression: 1: No acute cardiopulmonary disease. Reviewed, dictated and finalized at location L. Impression: 1: No acute cardiopulmonary disease.
[2022-08-27 12:35] LABS: Basophils Percent Auto 0.4 % (0.2-1.2); Eosinophils Absolute Auto 0.2 K/mm3 (0-0.3); Eosinophils Percent Auto 3.3 % (0-4.4); Hematocrit 37.7 % (37.0-47.0); Hemoglobin 12.5 g/dL (12.0-15.0); Immature Granulocyte Absolute 0.01 K/mm3 (0.00-0.031); Immature Granulocyte Percent A 0.1 % (0-0.5); Lymphocytes Absolute Auto 2.63 K/mm3 (0.9-3.2); Lymphocytes Percent Auto 35.6 % (18.3-44.2); Mean Corpuscular HGB Conc 33.2 g/dl (32-36); Mean Corpuscular Hemoglobin 32.7 pg (26-34); Mean Corpuscular Volume 98.7 fl (80-100); Mean Platelet Volume 8.2 fl (7.4-10.4); Monocytes Absolute Auto 0.4 K/mm3 (0.1-0.6); Monocytes Percent Auto 5.7 % (2.6-8.5); Neutrophils Absolute Auto 4.1 K/mm3 (1.3-6.7); Neutrophils Percent Auto 54.9 % (45.5-73.1); Platelet Count Result 189 k/mm3 (150-375); Red Blood Count 3.82 M/mm3 (4.2-5.4); White Blood Count 7.4 K/mm3 (4.5-10.0)
== END 2022-08-27 12:07 | disposition home or self-care (01) ==
PROVIDERS: PCP Internal Medicine; Visit Provider Internal Medicine
DX: R05.9 Cough, unspecified (principal)
CPT/HCPCS: 36415; 71046; 85025

== ENCOUNTER 2022-12-14 06:42 | Outpatient (CLI) | payer MEDICARE, SELFPAY ==
[2022-12-14 07:17] LABS: Basophils Percent Auto 0.7 % (0.2-1.2); Eosinophils Absolute Auto 0.2 K/mm3 (0-0.3); Eosinophils Percent Auto 3.8 % (0-4.4); Hematocrit 37.8 % (37.0-47.0); Hemoglobin 12.8 g/dL (12.0-15.0); Immature Granulocyte Absolute 0.01 K/mm3 (0.00-0.031); Immature Granulocyte Percent A 0.2 % (0-0.5); Lymphocytes Absolute Auto 1.58 K/mm3 (0.9-3.2); Lymphocytes Percent Auto 28.7 % (18.3-44.2); Mean Corpuscular HGB Conc 33.9 g/dl (32-36); Mean Corpuscular Hemoglobin 33.5 pg (26-34); Mean Platelet Volume 8.3 fl (7.4-10.4); Monocytes Absolute Auto 0.5 K/mm3 (0.1-0.6); Monocytes Percent Auto 9.6 % (2.6-8.5); Neutrophils Absolute Auto 3.1 K/mm3 (1.3-6.7); Platelet Count Result 197 k/mm3 (150-375); Red Blood Count 3.82 M/mm3 (4.2-5.4); Red Cell Distribution Width 12.3 % (11.5-14.5); White Blood Count 5.5 K/mm3 (4.5-10.0)
[2022-12-14 07:29] LABS: Alanine Aminotransferase 37 U/L (6-35); Albumin Level 4.4 g/dL (3.5-5.1); Alkaline Phosphatase 71 U/L (38-126); Anion Gap 7 mmol/L (8-16); Aspartate Amino Transferase 38 U/L (14-36); Bilirubin,Total 0.4 mg/dL (0.2-1.3); Blood Urea Nitrogen 29 mg/dL (7-17); Calcium 9.2 mg/dL (8.4-10.2); Carbon Dioxide 25 mmol/L (22-30); Chloride 109 mmol/L (98-107); Cholesterol 207 mg/dL (0-200); Estimated Glomerular Filt Rate > 60; Glucose 109 mg/dL (65-110); HDL Direct 46 mg/dL; Potassium 4.5 mmol/L (3.4-5.0); Sodium 141 mmol/L (137-145); Triglycerides 103 mg/dL (<150)
[2022-12-14 07:31] LABS: Hemoglobin A1C 5.5 % (<5.7)
[2022-12-14 07:40] LABS: LDL Cholesterol Direct 122 mg/dL
[2022-12-14 07:48] LABS: Free T4 Free Thyroxine 1.18 ng/mL (0.78-2.19)
[2022-12-14 09:18] LABS: Add Urine Microscopic? NO; Appearance Urine Clear (Clear); Bilirubin Urine Negative (Negative); Blood Urine Negative (Negative); Color Urine Yellow (Yellow); Glucose Urine UA Negative (Negative); Ketones Urine Negative (Negative); Leukocyte Esterase Ur Negative LEU/UL (Negative); Nitrate Urine Negative (Negative); Protein Urine Negative (Negative); Specific Grav Ur 1.021 (1.001-1.035); Urobilinogen Urine 0.2 mg/dL (<2.0)
[2022-12-17 04:03] LABS: Apolipoprotein B 108 mg/dL (<90)
== END 2022-12-14 06:43 | disposition home or self-care (01) ==
LOC: ANHLAB 06:44
PROVIDERS: PCP Internal Medicine; Visit Provider Internal Medicine
DX: E78.2 Mixed hyperlipidemia (principal); R73.03 Prediabetes; Z79.899 Other long term (current) drug therapy; Z13.29 Encounter for screening for other suspected endocrine disorder
CPT/HCPCS: 36415; 80053; 80061; 81003; 82172; 83036; 84439; 84443; 85025

== ENCOUNTER 2022-12-18 09:59 | Outpatient (CLI) | payer MEDICARE, SELFPAY ==
--- NOTE | ~2022-12-18 | US_ITS ---
EXAMINATION: US carotid duplex BI DATE: 12/18/2022 10:57 INDICATION: Essential hypertension. TECHNIQUE: Grayscale, color Doppler, and pulsed Doppler images of the cervical carotid arteries were obtained. The degree of vessel stenosis is placed in one of the following categories: normal, <50%, 5 0-69%, >=70% but less than near-occlusion, near-occlusion, or total occlusion. Note that percent sten osis relative to normal distal artery lumen diameter is indirectly measured from velocity measurement s as described by John, et al. Radiology 2003; 229:340-346. Notes: Normal: Peak systolic velocity <125 centimeters/sec and no plaque <50%. Peak systolic velocity <125 ( EDV <40; ICA/CCA PSV ratio <2.0; used these factors only a tandem lesions or low cardiac output or co ntralateral disease) 50-69 %: PSV 125-230 (EDV 40-100; ratio 2-4) >= 70% but less than near occlusion: PSV greater than 230 (EDV > 100; ratio> 4.0) Near Occlusion: PSV that is variable; markedly narrowed lumen Occlusion: Absent flow on color/spectral Doppler and no lumen on flowers scale. COMPARISON: None. FINDINGS: RIGHT: The right common carotid artery (CCA) peak systolic velocity (PSV) is 103 cm/s. The right internal ca rotid artery (ICA) PSV is 81 cm/s. The right ICA end-diastolic velocity (EDV) is cm/s. The right ICA/ CCA PSV ratio is 0.8. The external carotid artery (ECA) PSV is 77 cm/s. There is antegrade flow in th e right vertebral artery. LEFT: The left CCA PSV is 96 cm/s. The left ICA PSV is 110 cm/s. The left ICA EDV is 33 cm/s. The left ICA/ CCA PSV ratio is 1.. The ECA PSV is 94 cm/s. There is antegrade flow in the left vertebral artery. IMPRESSION: 1. Less than 50% stenosis in the right internal carotid artery by sonographic criteria. 2. Less than 50% stenosis in the left internal carotid artery by sonographic criteria. Reviewed, dictated and finalized at location B. IMPRESSION: 1. Less than 50% stenosis in the right internal carotid artery by sonographic foster mckeon. 2. Less than 50% stenosis in the left internal carotid artery by sonographic abdullahi murdock.
== END 2022-12-18 10:00 | disposition home or self-care (01) ==
PROVIDERS: PCP Internal Medicine; Visit Provider Internal Medicine
DX: I65.23 Occlusion and stenosis of bilateral carotid arteries (principal); I10 Essential (primary) hypertension
CPT/HCPCS: 93880

== ENCOUNTER 2023-01-20 08:28 | Outpatient (CLI) | payer MEDICARE, SELFPAY ==
--- NOTE | 2023-01-20 08:35 | ECHO_ITS ---
Patient Info Name: Mary Guthrie Age: 67 years : 1955 Gender: Female Ht: 63 in Wt: 183 lbs BSA: 1.95 m2 HR: 72 bpm BP: 135 / 79 mmHg Heart Rhythm: Sinus Rhythm Technical Quality: Good Exam Date: 01/20/2023 8:46 AM Exam Location: [facility] Pulmonary Patient Status: Outpatient Admit Date: 01/20/2023 Staff Ordering Physician: German Prabhakar MD Seed Potato Arranger: Miguelina Kauffman RDCS Attending Provider: German Prabhakar MD Referring Physician: Aki GUTIÉRREZ; Exam Type: CA echo doppler color flow Study Info Indications R07.89 - Other chest pain Complete two-dimensional, color flow and Doppler transthoracic echocardiogram is performed. Summary 1. Complete two-dimensional, color flow and Doppler transthoracic echocardiogram is performed. 2. Left ventricular chamber dimension is normal. 3. Left ventricular systolic function is normal, estimated at 60-65%. 4. The left ventricular diastolic function is grade I diastolic dysfunction. 5. E/e' 13 is mildly elevated. 6. Left atrial chamber dimension is mildly enlarged. 7. There is mild mitral valve regurgitation. 8. There is trace tricuspid valve regurgitation. 9. No pulmonary hypertension, estimated pulmonary arterial systolic pressure is 32 mmHg. 10. There is trace pulmonic regurgitation. Left Ventricle E/e' 13 is mildly elevated. Left ventricular chamber dimension is normal. Left ventricular systolic function is normal, estimated at 60-65%. The left ventricular diastolic function is grade I diastolic dysfunction. Right Ventricle Right ventricular systolic function is normal and with normal TAPSE 2.4 cm. Right ventricular chamber dimension is normal. Left Atria Left atrial chamber dimension is mildly enlarged. Right Atria Right atrial chamber dimension is normal. Aortic Valve The aortic valve is trileaflet. There is no aortic valve stenosis. There is no aortic valve regurgitation. Pulmonic Valve There is trace pulmonic regurgitation. Mitral Valve There is no mitral valve stenosis. There is mild mitral valve regurgitation. Tricuspid Valve There is trace tricuspid valve regurgitation. No pulmonary hypertension, estimated pulmonary arterial systolic pressure is 32 mmHg. Pericardium/Pleural There is no pericardial effusion. Inferior Vena Cava Normal inferior vena cava with >50% collapse upon inspiration consistent with normal right atrial pressure, 5 mmHg. Aorta The aortic root size at the sinus of Valsalva is normal. Left Ventricular Outflow Tract Name Value Normal LVOT 2D LVOT Diameter 1.9 cm LVOT Doppler LVOT Peak Gradient 6 mmHg LVOT Mean Gradient 2 mmHg LVOT VTI 22 cm LVOT VTI/AV VTI Ratio 0.8 LVOT Stroke Volume 61 ml LVOT CO 4.3 l/min LVOT CI 2.2 l/min/m2 Pulmonic Valve Name Value Normal RVOT Doppler
--- NOTE | 2023-01-22 15:44 | WPDHOLTEREM ---
Holter/Event Monitor Holter/Event Monitor Date of procedure: 01/20/23 Holter/Event Procedure: 48 Hr Holter Monitor Indications: Vision loss Conclusion: 1. 48 hour holter monitor on 01/20/23. 2. Underlying rhythm is sinus rhythm. HR range 52-136 bpm; average HR 92 bpm. 3. There are 3 premature supraventricular complexes and 1 supraventricular couplet. No supraventricular tachycardia. 4. There are 9 premature ventricular complexes. No ventricular tachycardia. 5. No sinoatrial or atrioventricular blocks. No significant pauses greater than 2 seconds. 6. Patient reports symptom of blurry vision which demonstrate sinus tachycardia at 102 bpm
== END 2023-01-20 08:29 | disposition home or self-care (01) ==
PROVIDERS: PCP Internal Medicine; Visit Provider Internal Medicine
DX: H54.7 Unspecified visual loss (principal); R07.89 Other chest pain; I10 Essential (primary) hypertension; Z82.49 Family history of ischemic heart disease and other diseases of the circulatory system; I34.0 Nonrheumatic mitral (valve) insufficiency
CPT/HCPCS: 93225; 93226; 93306

== ENCOUNTER 2023-02-22 09:55 | Emergency (ER) | payer MEDICARE, SELFPAY ==
[2023-02-22] VITALS (8 sets, daily range): BP systolic 138–147; BP diastolic 75–82; PULSE 68–84; RESP 12–20; TEMP 36.1–36.8; O2SAT 97–100
--- NOTE | ~2023-02-22 | CT_ITS ---
EXAMINATION: CTA brain carotid DATE: 02/22/2023 12:38 INDICATION: Headache. Facial tingling. Left face numbness. TECHNIQUE: Computed tomographic angiography (CTA) of the head was performed without and with 100 mL O mnipaque-350 intravenous contrast. CTA of the neck was performed with intravenous contrast. Automated exposure control and iterative reconstruction technique were employed. The dose-length product was 1 842.77 mGy-cm. Maximum intensity projection and volume rendered 3D-reconstructions were created by mesha harden technologist on a separate workstation. COMPARISON: CTA 09/27/2019 FINDINGS: HEAD CTA: There is no intracranial hemorrhage, acute infarction, or abnormal intracranial mass lesion . The ventricles are normal in size. There is mild mucosal thickening in the ethmoid sinuses. The mas toid air cells are normal. The orbits are normal. The vertebral arteries are codominant. There is no significant stenosis of basilar artery or the posterior cerebral arteries. The posterior communicatin g arteries are normal. There is no significant stenosis of the intracranial internal carotid arteries or anterior or middle cerebral arteries. Anterior communicating artery is normal. There is no aneury sm. NECK CTA: There are no pathologically enlarged lymph nodes. There are nodules in the thyroid measurin g up to 4 mm, likely not clinically significant. There is no significant stenosis of the vertebral ar teries. There is plaque in the proximal internal carotid arteries. There is 0% stenosis of the proxim al right internal carotid artery relative to normal distal artery lumen diameter (NASCET criteria). T here is 0% stenosis of the proximal left internal carotid artery relative to normal distal artery lum en diameter. There is severe cervical spondylosis. IMPRESSION: 1. Normal brain. No aneurysm or significant intracranial arterial stenosis. 2. 0% stenosis of the proximal internal carotid arteries relative to normal distal artery lumen diame ters (NASCET criteria). Reviewed, dictated and finalized at location E. BOX INSPECTOR IMPRESSION: 1. Normal brain. No aneurysm or significant intracranial arterial stenosis. 2. 0% stenosis of the proximal internal carotid arteries relative to normal dis himanshu artery lumen diameters (NASCET criteria).
--- NOTE | 2023-02-22 11:19 | PC.NURSE ---
Pt states headache woke up in the night 2 days ago with left facial numbness, pt took B/P 150/100. Upon arrival to ER pt c/o of numbness to left upper lip numbness. Facial movement symmetrical with no aphasia/dysphagia noted.
[2023-02-22] MEDS: KETOROLAC 15 MG/ML VIAL (*BKC) IV PUSH (11:44)
[2023-02-22 11:57] LABS: Basophils Percent Auto 0.5 % (0.2-1.2); Eosinophils Absolute Auto 0.2 K/mm3 (0-0.3); Eosinophils Percent Auto 2.6 % (0-4.4); Hematocrit 36.8 % (37.0-47.0); Hemoglobin 12.3 g/dL (12.0-15.0); Immature Granulocyte Absolute 0.01 K/mm3 (0.00-0.031); Immature Granulocyte Percent A 0.2 % (0-0.5); Lymphocytes Absolute Auto 1.88 K/mm3 (0.9-3.2); Lymphocytes Percent Auto 28.8 % (18.3-44.2); Mean Corpuscular HGB Conc 33.4 g/dl (32-36); Mean Corpuscular Hemoglobin 32.8 pg (26-34); Mean Corpuscular Volume 98.1 fl (80-100); Mean Platelet Volume 8.6 fl (7.4-10.4); Monocytes Absolute Auto 0.5 K/mm3 (0.1-0.6); Monocytes Percent Auto 8.1 % (2.6-8.5); Neutrophils Absolute Auto 3.9 K/mm3 (1.3-6.7); Neutrophils Percent Auto 59.8 % (45.5-73.1); Platelet Count Result 189 k/mm3 (150-375); Red Blood Count 3.75 M/mm3 (4.2-5.4); Red Cell Distribution Width 12.4 % (11.5-14.5); White Blood Count 6.5 K/mm3 (4.5-10.0)
[2023-02-22 12:06] LABS: Alanine Aminotransferase 38 U/L (6-35); Albumin Level 4.2 g/dL (3.5-5.1); Alkaline Phosphatase 87 U/L (38-126); Anion Gap 6 mmol/L (8-16); Aspartate Amino Transferase 42 U/L (14-36); Bilirubin,Total 0.5 mg/dL (0.2-1.3); Blood Urea Nitrogen 20 mg/dL (7-17); Calcium 9.5 mg/dL (8.4-10.2); Carbon Dioxide 26 mmol/L (22-30); Chloride 108 mmol/L (98-107); Estimated CRCL calculation 60 ml/min; Estimated Glomerular Filt Rate > 60; Glucose 89 mg/dL (65-110); Sodium 140 mmol/L (137-145)
--- NOTE | 2023-02-22 14:12 | ED.NEUROSD ---
HPI - Neuro Symptoms/Deficit General Chief Complaint: Neuro Symptoms/Deficit Stated Complaint: headache. left side facial numbness Time Seen by Provider: 02/22/23 10:18 History of Present Illness HPI Narrative: Patient is a 67-year-old female who presents ER with headache. Ongoing for the last couple days. Waxes and wanes in intensity. No thunderclap. Associated with tingling to left face. No facial droop or slurred speech. No recent infectious prodrome called her PCP and was referred here for further evaluation. Related Data Home Medications Medication Instructions Recorded Confirmed Tumersaid 09/27/19 12/25/22 cholecalciferol (vitamin D3) 125 125 mcg PO DAILY 09/27/19 12/25/22 mcg (5,000 unit) tablet (Vitamin D3) naproxen sodium 220 mg capsule 220 mg PO Q12H 09/27/19 12/25/22 (Aleve) cyanocobalamin (vitamin B-12) 1,000 mcg PO DAILY 10/02/19 12/25/22 1,000 mcg tablet (Vitamin B-12) aspirin 81 mg chewable tablet 81 mg PO DAILY 12/14/22 12/25/22 albuterol sulfate 2.5 mg/3 mL mg 02/22/23 (0.083 %) solution for nebulization colesevelam 625 mg tablet mg 02/22/23 folic acid 1 mg tablet 02/22/23 gabapentin 100 mg capsule mg 02/22/23 gabapentin 100 mg capsule mg 02/22/23 pramipexole 1 mg tablet mg 02/22/23 Allergies Allergy/AdvReac Type Severity Reaction Status Date / Time cortisone Allergy Joint Pain Verified 02/22/23 11:12 tetracycline Allergy Joint Pain Verified 02/22/23 11:12 MALKA Inhibitors AdvReac Severe Depression Verified 02/22/23 11:12 hydrochlorothiazide AdvReac Severe Depression Verified 02/22/23 11:12 statin intolerant Allergy Unknown leg pain Uncoded 02/22/23 11:12 Review of Systems Review of Systems: All systems reviewed & are unremarkable except as noted in HPI and below Constitutional: Constitutional: Denies chills, Denies fatigue and Denies fever(s) ENT: Denies nasal congestion and Denies sore throat Cardiovascular: Cardiovascular: Reports no additional cardiovascular complaints Respiratory: Respiratory: Reports no additional respiratory complaints Gastrointestinal: Gastrointestinal: Reports no additional gastrointestinal complaints Integumentary/Breasts: Skin/Breast: Denies erythema and Denies rash Neurologic: Denies syncope, Reports headache(s) and Denies focal weakness Comments: Left facial tingling PMFSH Past Medical History Medical History (Updated 02/22/23 @ 14:16 by Roney Redding MD) BMI 32.0-32.9,adult BMI 33.0-33.9,adult BMI 34.0-34.9,adult BPPV (benign paroxysmal positional vertigo) Chronic low back pain with left-sided sciatica spondylosis rima L3/L4, L4/L5 facet osteoarthritis at L3/L4, L4/L5, L5/S1 Colonic polyp Cough DJD (degenerative joint disease) Eczema Elevated homocysteine Encounter for Medicare annual wellness exam Encounter for routine adult health examination without abnormal findings Familial hypercholesterolemia FHx: heart disease Follow up History of kidney stones History of pneumonia History of tobacco abuse Per Dr. Prabhakar- Remote History Hypertension Knee pain, left Mixed hyperlipidemia Narcolepsy Need for influenza vaccination On lobsterman drug therapy Pneumonia Polyarthritis Pre-diabetes Restless leg Skin cancer Statin intolerance Visual loss Surgical History Surgical History History of fusion of cervical spine History of tonsillectomy Family History Family History Mother Diabetes mellitus CHF (congestive heart failure) Pacemaker Father Aneurysm Cerebrovascular accident Hx of CABG Other Shortness of breath Social History Social History Years smoked: 25 Smoking status: Former smoker Second hand tobacco smoke exposure: Yes Smoking end date: 04/05/99 Lack of Transportation: No Lack of Food: Never True Current Hous
== END 2023-02-22 14:25 | disposition home or self-care (01) ==
PROVIDERS: Emergency Provider Emergency Medicine; PCP Internal Medicine
DX: R51.9 Headache, unspecified (principal); I11.9 Hypertensive heart disease without heart failure; E78.2 Mixed hyperlipidemia; M19.90 Unspecified osteoarthritis, unspecified site; G25.81 Restless legs syndrome; Z87.01 Personal history of pneumonia (recurrent); Z85.828 Personal history of other malignant neoplasm of skin; Z87.442 Personal history of urinary calculi; Z86.010 Personal history of colon polyps; Z87.891 Personal history of nicotine dependence; Z98.1 Arthrodesis status
CPT/HCPCS: 36415; 70496; 70498; 80053; 85025; 96374; 99284; J1885; Q9967

== ENCOUNTER 2023-03-04 07:30 | Outpatient (CLI) | payer MEDICARE, SELFPAY ==
[2023-03-04 08:19] LABS: Alanine Aminotransferase 32 U/L (6-35); Albumin Level 4.5 g/dL (3.5-5.1); Alkaline Phosphatase 99 U/L (38-126); Anion Gap 9 mmol/L (8-16); Aspartate Amino Transferase 34 U/L (14-36); Bilirubin,Total 0.6 mg/dL (0.2-1.3); Blood Urea Nitrogen 25 mg/dL (7-17); Calcium 9.6 mg/dL (8.4-10.2); Carbon Dioxide 25 mmol/L (22-30); Chloride 107 mmol/L (98-107); Cholesterol 209 mg/dL (0-200); Estimated Glomerular Filt Rate > 60; Glucose 105 mg/dL (65-110); HDL Direct 55 mg/dL; Potassium 4.2 mmol/L (3.4-5.0); Sodium 141 mmol/L (137-145); Triglycerides 162 mg/dL (<150)
[2023-03-04 08:30] LABS: LDL Cholesterol Direct 112 mg/dL
== END 2023-03-04 07:31 | disposition home or self-care (01) ==
LOC: ANHLAB 07:32
PROVIDERS: PCP Internal Medicine; Visit Provider Internal Medicine
DX: E78.2 Mixed hyperlipidemia (principal)
CPT/HCPCS: 36415; 80053; 80061

== ENCOUNTER 2023-05-12 06:23 | Day surgery (SDC) | payer MEDICARE, SELFPAY ==
[2023-04-15 12:23] VITALS: BMI 33.3
[2023-04-23 09:47] VITALS: BMI 33.3
[2023-05-12 07:19] VITALS: BP 137/80; PULSE 70; RESP 14; TEMP 36.3; O2SAT 100
--- NOTE | 2023-05-12 07:46 | PM.HPGS ---
History of Present Illness History of Present Illness Consent: Risks, benefits, and alternatives have been discussed and questions answered. Patient agrees to proceed with procedure. Chief complaint: History of colon polyps Narrative: Mary Guthrie is a 67 year old female presents for screening colonoscopy. Patient was found to have 3 colon polyps at previous colonoscopy 3 years ago performed to [facility]. Patient is these were benign. She reports that her bowel habits are normal. Patient denies abdominal pain. She has had no bleeding. Family history is noncontributory. Review of Systems Review of Systems: Review of systems noncontributory. [facility] Past Medical History Medical History (Updated 03/08/23 @ 09:27 by Ana Lilia Ballesteros CMA) BMI 32.0-32.9,adult BMI 33.0-33.9,adult BMI 34.0-34.9,adult BPPV (benign paroxysmal positional vertigo) Chronic low back pain with left-sided sciatica spondylosis rima L3/L4, L4/L5 facet osteoarthritis at L3/L4, L4/L5, L5/S1 Colon cancer screening Colonic polyp Cough DJD (degenerative joint disease) Eczema Elevated homocysteine Encounter for Medicare annual wellness exam Encounter for routine adult health examination without abnormal findings Episodic headache Familial hypercholesterolemia FHx: heart disease Follow up History of kidney stones History of pneumonia History of tobacco abuse Per Dr. Prabhakar- Remote History Hx of colonic polyps Hypertension Knee pain, left Mixed hyperlipidemia Narcolepsy Need for influenza vaccination On intermediate drug therapy Pneumonia Polyarthritis Pre-diabetes Restless leg Skin cancer Statin intolerance Visual loss Surgical History Surgical History History of fusion of cervical spine History of tonsillectomy Family History Family History Mother Diabetes mellitus CHF (congestive heart failure) Pacemaker Father Aneurysm Cerebrovascular accident Hx of CABG Other Shortness of breath Social History Social History Years smoked: 25 Smoking status: Never smoker Second hand tobacco smoke exposure: Yes Smoking end date: 04/05/99 Alcohol intake: never Alcohol use details: occassional Substance use: never Substance use type: does not use Lack of Transportation: No Lack of Food: Never True Current Housing: I Have Housing Concerned About Future Housing: No Difficulty Paying Gas/Electric Bills: No Difficulty Paying for Meds: No Currently Unemployed: No Education: Associate Degree Difficulty w/ Childcare or Family Care: No Living arrangements: with family Gender identity (if verbalized by the patient): Female Spiritual care concerns: No Meds Home Medications and Allergies Home Medications Medication Instructions Recorded Confirmed Type cholecalciferol (vitamin D3) 125 125 mcg PO DAILY 09/27/19 05/12/23 History mcg (5,000 unit) tablet (Vitamin D3) naproxen sodium 220 mg capsule 220 mg PO Q12H 09/27/19 05/12/23 History (Aleve) cyanocobalamin (vitamin B-12) 1,000 mcg PO DAILY 10/02/19 05/12/23 History 1,000 mcg tablet (Vitamin B-12) omega-3 fatty acids 1,000 mg 2,000 mg PO BID #180 caps 10/24/19 05/12/23 Rx capsule (Fish Oil Concentrate) triamcinolone acetonide 0.5 % 1 applic topical BID #60 grams 05/01/21 05/12/23 Rx topical cream albuterol sulfate 2.5 mg/3 mL 2.5 mg (3 mL) inhalation Q4-6H PRN 09/01/22 05/12/23 Rx (0.083 %) solution for nebulization cough #180 mL aspirin 81 mg chewable tablet 81 mg PO DAILY 12/14/22 05/12/23 History colesevelam 625 mg tablet (WelChol) 1,875 mg PO BID #540 tabs 12/14/22 05/12/23 Rx pramipexole 1 mg tablet (Mirapex) 1 mg PO BID #180 tabs 02/17/23 05/12/23 Rx folic acid 1 mg tablet See Rx Instructions .Route 02/19/23 05/12/23 Rx .COMPLEX
[2023-05-12] MEDS: LACTATED RINGERS 1,000 ML 150 ML IV CONT (07:47)
--- NOTE | 2023-05-12 08:05 | WPDANESEPPF ---
Anes - Initial Pre Proc Eval Procedure: Operation Date: 05/12/23 08:30 Proposed Procedures p Colonoscopy - Chris Renteria MD Date/Time: 05/12/23 08:05 Surgeon: Chris Renteria MD Pre Op Diagnosis: History of colon polyps Patient Data Age: 67 Gender: F Height: 1.6 m Weight: 86.3 kg Last Vital Signs Temp 36.3 C L 05/12/23 07:19 Pulse 70 05/12/23 07:19 Resp 14 05/12/23 07:19 BP 137/80 05/12/23 07:19 Pulse Ox 100 05/12/23 07:19 O2 Del Method Room Air 05/12/23 07:19 Allergies Allergy/AdvReac Type Severity Reaction Status Date / Time cortisone Allergy Joint Pain Verified 05/12/23 07:14 tetracycline Allergy Joint Pain Verified 05/12/23 07:14 MALKA Inhibitors AdvReac Severe Depression Verified 05/12/23 07:14 hydrochlorothiazide AdvReac Severe Depression Verified 05/12/23 07:14 statin intolerant Allergy Unknown leg pain Uncoded 05/12/23 07:14 Home Medications Medication Instructions Recorded Confirmed Type cholecalciferol (vitamin D3) 125 125 mcg PO DAILY 09/27/19 05/12/23 History mcg (5,000 unit) tablet (Vitamin D3) naproxen sodium 220 mg capsule 220 mg PO Q12H 09/27/19 05/12/23 History (Aleve) cyanocobalamin (vitamin B-12) 1,000 mcg PO DAILY 10/02/19 05/12/23 History 1,000 mcg tablet (Vitamin B-12) omega-3 fatty acids 1,000 mg 2,000 mg PO BID #180 caps 10/24/19 05/12/23 Rx capsule (Fish Oil Concentrate) triamcinolone acetonide 0.5 % 1 applic topical BID #60 grams 05/01/21 05/12/23 Rx topical cream albuterol sulfate 2.5 mg/3 mL 2.5 mg (3 mL) inhalation Q4-6H PRN 09/01/22 05/12/23 Rx (0.083 %) solution for nebulization cough #180 mL aspirin 81 mg chewable tablet 81 mg PO DAILY 12/14/22 05/12/23 History colesevelam 625 mg tablet (WelChol) 1,875 mg PO BID #540 tabs 12/14/22 05/12/23 Rx pramipexole 1 mg tablet (Mirapex) 1 mg PO BID #180 tabs 02/17/23 05/12/23 Rx folic acid 1 mg tablet See Rx Instructions .Route 02/19/23 05/12/23 Rx .COMPLEX #90 tabs bempedoic acid 180 mg-ezetimibe 10 1 tablet PO DAILY #90 tabs 03/08/23 05/12/23 Rx mg tablet (Nexlizet) ezetimibe 10 mg tablet (Zetia) See Rx Instructions .Route .COMPLEX 04/23/23 05/12/23 History gabapentin 100 mg capsule See Rx Instructions .Route 05/03/23 05/12/23 Rx .COMPLEX #180 caps Patient hx anesthesia problems: none Family hx anesthesia problems: none Results Review: All pre-operative results and documents have been reviewed as part of the pre-operative evaluation. [facility] Past Medical History Medical History BMI 32.0-32.9,adult BMI 33.0-33.9,adult BMI 34.0-34.9,adult BPPV (benign paroxysmal positional vertigo) Chronic low back pain with left-sided sciatica spondylosis rima L3/L4, L4/L5 facet osteoarthritis at L3/L4, L4/L5, L5/S1 Colon cancer screening Colonic polyp Cough DJD (degenerative joint disease) Eczema Elevated homocysteine Encounter for Medicare annual wellness exam Encounter for routine adult health examination without abnormal findings Episodic headache Familial hypercholesterolemia FHx: heart disease Follow up History of kidney stones History of pneumonia History of tobacco abuse Per Dr. Prabhakar- Remote History Hx of colonic polyps Hypertension Knee pain, left Mixed hyperlipidemia Narcolepsy Need for influenza vaccination On terminal block assembler drug therapy Pneumonia Polyarthritis Pre-diabetes Restless leg Skin cancer Statin intolerance Visual loss Surgical History Surgical History History of fusion of cervical spine History of tonsillectomy Family History Family History Mother Diabetes mellitus CHF (congestive heart failure) Pacemaker Father Aneurysm Cerebrovascular accident Hx of CABG Other Shortness of breath Social History Social History (Reviewed 05/12/23 @ 08:05 by Marco
[2023-05-12 08:31] VITALS: BP 106/64; PULSE 79; RESP 16; O2SAT 100
[2023-05-12 08:41] VITALS: BP 127/75; PULSE 77; RESP 18; O2SAT 100
[2023-05-12 08:51] VITALS: BP 130/80; PULSE 75; RESP 18; O2SAT 100
--- NOTE | 2023-05-12 09:41 | WPDANESPN ---
Anes - Prog Note Post-Op Date/Time: 05/12/23 09:41 Cardiovascular status: normal Respiratory status: normal Airway patency: baseline Mental status: baseline Post-Op hydration status: normal Vital Signs: Last Vital Signs Temp 36.3 C L 05/12/23 07:19 Pulse 75 05/12/23 08:51 Resp 18 05/12/23 08:51 BP 130/80 05/12/23 08:51 Pulse Ox 100 05/12/23 08:51 O2 Del Method Room Air 05/12/23 08:51 Pain Score (VAS): 0 I/O: Intake & Output 05/11/23 05/12/23 05/12/23 23:59 07:59 15:59 Intake Total 800 Balance 800 Patient Feedback: Patient satisfied with anesthetic care.
== END 2023-05-12 08:59 | disposition home or self-care (01) ==
PROVIDERS: PCP Internal Medicine; Visit Provider Internal Medicine Gastroenterology
PROC: 0DJD8ZZ Inspection of Lower Intestinal Tract, Via Natural or Artificial Opening Endoscopic (ICD-10-PCS; CPT 45378; principal; 2023-05-12 08:30)
DX: Z86.010 Personal history of colon polyps (principal); D12.2 Benign neoplasm of ascending colon; K57.30 Diverticulosis of large intestine without perforation or abscess without bleeding
CPT/HCPCS: 45380

== ENCOUNTER 2023-05-12 07:00 | Outpatient (NON) | payer MEDICARE, SELFPAY | END 2023-05-12 07:01 | disposition home or self-care (01) | LOC: ANHLAB 05-13 10:47 | PROVIDERS: PCP Internal Medicine; Visit Provider Internal Medicine Gastroenterology | DX: D12.2 Benign neoplasm of ascending colon (principal); Z86.010 Personal history of colon polyps | CPT/HCPCS: 88305 ==

== ENCOUNTER 2023-07-24 06:36 | Outpatient (CLI) | payer MEDICARE, SELFPAY ==
[2023-07-24 07:28] LABS: Alanine Aminotransferase 30 U/L (6-35); Albumin Level 4.3 g/dL (3.5-5.1); Alkaline Phosphatase 82 U/L (38-126); Anion Gap 5 mmol/L (4-12); Aspartate Amino Transferase 35 U/L (14-36); Bilirubin,Total 0.5 mg/dL (0.2-1.3); Blood Urea Nitrogen 21 mg/dL (7-17); Calcium 9.7 mg/dL (8.4-10.2); Carbon Dioxide 29 mmol/L (22-30); Chloride 109 mmol/L (98-107); Cholesterol 167 mg/dL (0-200); Estimated Glomerular Filt Rate > 60; Glucose 105 mg/dL (65-110); HDL Direct 46 mg/dL; Potassium 4.1 mmol/L (3.4-5.0); Sodium 143 mmol/L (137-145); Triglycerides 187 mg/dL (<150)
[2023-07-24 07:44] LABS: LDL Cholesterol Direct 96 mg/dL
[2023-07-24 08:22] LABS: Free T4 Free Thyroxine 1.07 ng/mL (0.78-2.19)
[2023-07-24 08:41] LABS: Hemoglobin A1C 5.5 % (<5.7)
== END 2023-07-24 06:37 | disposition home or self-care (01) ==
PROVIDERS: PCP Internal Medicine; Visit Provider Internal Medicine
DX: E78.2 Mixed hyperlipidemia (principal); I10 Essential (primary) hypertension; R73.03 Prediabetes; Z13.29 Encounter for screening for other suspected endocrine disorder; Z79.899 Other long term (current) drug therapy
CPT/HCPCS: 36415; 80053; 80061; 83036; 84439; 84443

== ENCOUNTER 2024-01-31 07:04 | Outpatient (CLI) | payer MEDICARE, SELFPAY ==
[2024-01-31 07:56] LABS: Anion Gap 9 mmol/L (4-12); Blood Urea Nitrogen 19 mg/dL (7-17); Calcium 9.7 mg/dL (8.4-10.2); Carbon Dioxide 30 mmol/L (22-30); Chloride 103 mmol/L (98-107); Cholesterol 202 mg/dL (0-200); Estimated Glomerular Filt Rate > 60; Glucose 123 mg/dL (65-110); HDL Direct 51 mg/dL; Potassium 4.7 mmol/L (3.4-5.0); Sodium 142 mmol/L (137-145); Triglycerides 152 mg/dL (<150)
[2024-01-31 07:57] LABS: LDL Cholesterol Direct 114 mg/dL
[2024-01-31 08:00] LABS: Add Urine Microscopic? YES; Appearance Urine Clear (Clear); Bacteria Urine None Seen /hpf; Bilirubin Urine Negative (Negative); Blood Urine Negative (Negative); Color Urine Yellow (Yellow); Glucose Urine UA Negative (Negative); Ketones Urine Negative (Negative); Leukocyte Esterase Ur Trace LEU/UL (Negative); Nitrate Urine Negative (Negative); Non Pathogenic Casts 0-2; Protein Urine Negative (Negative); RBC Urine 0-2 /hpf (0-2); Specific Grav Ur 1.017 (1.001-1.035); Squamous Epithelial Cell Urine Occasional /hpf (Few); Urobilinogen Urine 0.2 mg/dL (<2.0); WBC Urine 0-5 /hpf (0-3); pH Urine 5.5 (5.0-9.0)
[2024-01-31 09:39] LABS: Vitamin D 25 Hydroxy 55.2 ng/mL
== END 2024-01-31 07:05 | disposition home or self-care (01) ==
PROVIDERS: PCP Internal Medicine; Visit Provider Internal Medicine
DX: Z79.899 Other long term (current) drug therapy (principal); R73.03 Prediabetes; E55.9 Vitamin D deficiency, unspecified; E78.2 Mixed hyperlipidemia; Z13.29 Encounter for screening for other suspected endocrine disorder
CPT/HCPCS: 36415; 80048; 80061; 81001; 82306; 83036; 84439; 84443

== ENCOUNTER 2024-07-28 06:49 | Outpatient (CLI) | payer MEDICARE, SELFPAY ==
--- OUTSIDE RECORDS SUMMARY | 2024-07-28 06:52 | XMS_ITS | Clinical Summary ---
Author Organization [facility] Address [address] [place] [id number] Care Team Providers Care Pega Developer Name Role Phone German Prabhakar MD Primary Care Provider Social History Tobacco Use Types Packs/Day Years Used Date Smoking Tobacco: Never Assessed Comments Unknown Sex and Gender Information Value Date Recorded Sex Assigned at Not on file Legal Sex Female 8:02 AM CDT Gender Identity Not on file Sexual Orientation Not on file Plan of Treatment Health Maintenance Due Date Last Done Comments Colorectal Cancer Screening Colonoscopy (10 Years) 1955 Hepatitis C 11/22/1971 DTaP, Tdap and Td Vaccines ( 1 - Tdap) 1972 Mammogram Screening 1993 Pneumococcal Vaccine: 50+ Ye ars (1 of 1 - PCV) 11/22/2003 Zoster Vaccines (1 of 2) 11/22/2003 Annual Medicare Wellness Visit 2018 Dexa Scan (General) 2018 COVID-19 Vaccine ( - 2023-2 5 season) 2023 RSV Immunization or 60+ Years (1 - 1-dose 75+ series) 2028 Meningococcal B Vaccine Aged Out No l onger eligible based on patient's age to complete this topic Meningococcal Vaccine Aged Out No nic alice eligible based on patient's age to complete this topic RSV Immunizations Under 20 Months Aged Out No longer eligible based on patient's age to complete this topic Insurance [facility] Care Teams Pega Developer Relationship Specialty Start Date End Date German Prabhakar MD [id number] - [facility] [address] [place] [address] PCP - General INTERNAL MEDICINE 07/23/22
--- OUTSIDE RECORDS SUMMARY | 2024-07-28 06:52 | XMS_ITS | Referral Summary ---
Author Organization [facility] Office Building [address] [place] [id number] Care Team Providers Care Cream Gatherer Name Role Phone German Prabhakar MD Primary Care Provider [phone] Allergies Active Allergy Reactions Criticality Noted Date Comments Cortisone Other (See comments) Low 12/27/2019 intolerance Tetracycline Other (See comments) Low 12/27/2019 Dry mucosa Medications pramipexole (MIRAPEX) 1 mg tablet take 1 tablet (1MG) by oral route bid 0 04/15/2012 Active folic acid (FOLVITE) 1 mg tablet TK 1 T PO D 10/11/2019 Active gabapentin (NEURONTIN) 100 mg capsule TK 2 CS PO TID 12/19/2019 Active triamcinolone (KENALOG) 0.5 % cream MARIE EXT AA BID 10/24/2019 Active cyanocobalamin (vitamin B-12) 1,000 mcg tabletIndication s:Prevention of Vitamin B12 Deficiency Take 1,000 mcg by mouth daily Active cholecalciferol (Vitamin D3) 5,000 unit tablet 5,000 Units daily Active turmeric root extract 500 mg capsule Take 500 mg by mouth daily Active omega-3s/dha/epa /fish oil (OMEGA 3 ORAL) Take 1,000 mg by mouth daily Active Active Problems Problem Noted Date Diagnosed Date History of colon polyps 12/18/2019 Overview (12/18/2019): Added automatically from request for surgery [id number] Primary osteoarthritis of both knees 02/11/2017 Assessment & Plan (02/11/2017 11:10 AM PHLEBOTOMY LAB ASSISTANT): Patient has reactive synovitis in the knees most likely from overuse and walking on uneven terrain. The patient was given a cortisone injection in each knee through a sterile field. She tolerated the procedures well. She was advised to develops more calf pain a call and would be happy to arrange a Doppler ultrasound to rule out a deep vein thrombosis but currently her Homans is negative. Patient does have far more advanced arthritis in the left knee where she has undergone prior arthroscopic surgery on two occasions for meniscal tears and is likely facing knee replacement surgery in the not too distant future Inflammation of rotator cuff tendon 04/30/2016 Overview (07/09/2016): Right rotator cuff tendinitis Arthralgia of shoulder 04/30/2016 Overview (07/09/2016): Pain, joint, shoulder, right Arthralgia 04/15/2012 Overview (07/10/2016): Joint pain Pain of lower extremity 04/15/2012 Overview (07/10/2016): Leg pain Immunizations Immunization Administration Dates Next Due Influenza, Trivalent, IM (MDV) 01/04/2012 Social History Tobacco Use Types Packs/Day Years Used Date Smoking Tobacco: Former Smokeless Tobacco: Never Alcohol Use Standard Drinks/Week Comments Yes 0 (1 standard drink = 0.6 oz pur e alcohol) occasional Comments Unknown Sex and Gender Information Value Date Recorded Sex Assigned at Not on file Legal Sex Female 8:43 PM PHLEBOTOMY LAB ASSISTANT Gender Identity Not on file Sexual Orientation Not on file Last Filed Vital Signs Vital Sign Reading Time Taken Comments Blood Pressure 114/60 12/27/2019 9:20 AM CDT Pulse 75 12/27/2019 9:20 AM CDT Temperature 36.7 C (98 F) 12/27/2019 8:40 AM CDT Respiratory Rate 22 12/27/2019 9:20 AM CDT Oxygen Saturation 96% 12/27/2019 9:20 AM CDT Inhaled Oxygen Concentration - - Weight 81.6 kg (180 lb) 12/27/2019 7:22 AM CDT Height 160 cm (5' 3 ) 12/27/2019 7:22 AM CDT Body Mass Index 31.89 12/27/2019 7:22 AM CDT Plan of Treatment Not on file Insurance [facility] MEDICARE ADVANTAGE [facility] MED[facility] Address[address] [address] Care Teams Cream Gatherer Relationship Specialty Start Date End Date German Prabhakar MD [address] [place] [address] PCP - General Internal Medicine 12/18/19
--- OUTSIDE RECORDS SUMMARY | 2024-07-28 06:52 | XMS_ITS | Clinical Summary ---
Author Organization [facility] Physician Office Building [address] [place] [address] Care Team Providers Care Gluer Machine Operator Name Role Phone German Prabhakar MD Primary Care Provider [phone] Allergies Active Allergy Reactions Criticality Noted Date [...] (12/18/2019): Added automatically from request for surgery [id number] Primary osteoarthritis of both knees 02/11/2017 Assessment & Plan (02/11/2017 11:10 AM BOAT OAR MAKER): Patient has reactive synovitis in the knees [...] Next Due Influenza, Trivalent, IM (MDV) 01/04/2012 Surgical History Surgery Date Site/Laterality Comments OTHER SURGICAL HISTORY Lt knee meniscus repair: Dr. Acuña CERVICAL FUSION 04/05/1998 - 04/04/1999 SKIN CANCER EXCISION 04/05/2006 - 04/04/2007 basal skin cancer removal MENISCUS SURGERY Left x2 TONSILLECTOMY 04/05/1958 - 04/04/1959 CARDIAC CATHETERIZATION 04/05/2007 - 04/04/2008 LUMBAR SPINE SURGERY TUBAL LIGATION 04/05/1988 - 04/04/1989 COLONOSCOPY 04/05/2015 - 04/04/2016 Medical History Medical History Date Comments Malignant neoplasm of skin Cance r, skin Hypertension Arthritis Restless leg syndrome Family History Medical History Relation Name Comments Arthritis Mother arthritis; Heart failure Other 1 Family history of Congestive heart failure; Diabetes Other 2 Family history of Diabetes mellitus; Hypertension Other 3 Family history of Hypertension; Osteoarthritis Other 4 Family histor y of Osteoarthritis; Stroke Other 5 Family history of Stroke; Relation Name Status Comments Mother Alive Other 1 Other 2 Other 3 Other 4 Other 5 Social History Tobacco Use Types Packs/Day Years Used Date Smoking Tobacco: Former Smokeless Tobacco: Never Alcohol Use Standard Drinks/Week Comments Yes 0 (1 standard drink = 0.6 oz pur e alcohol) occasional Comments Unknown Sex and Gender Information Value Date Recorded Sex Assigned at Not on file Legal Sex Female 8:43 PM BOAT OAR MAKER Gender Identity Not on file Sexual Orientation Not on file Obstetrics History Last Filed Vital Signs Vital Sign Reading [...] Plan of Treatment Not on file Insurance MEDICARE ADVANTAGE [facility] MEDICARE Address: [facility] [address] [place] [address] [id number] Care Teams Gluer Machine Operator Relationship Specialty Start Date End Date German Prabhakar MD [address] [facility] [address] [facility] [address] [place] [address] PCP - General Internal Medicine 12/18/19
[2024-07-28 07:53] LABS: Basophils Percent Auto 0.6 % (0.2-1.2); Eosinophils Absolute Auto 0.2 K/mm3 (0-0.3); Eosinophils Percent Auto 2.3 % (0-4.4); Hematocrit 36.6 % (37.0-47.0); Hemoglobin 12.3 g/dL (12.0-15.0); Immature Granulocyte Absolute 0.01 K/mm3 (0.00-0.031); Immature Granulocyte Percent A 0.2 % (0-0.5); Lymphocytes Absolute Auto 2.09 K/mm3 (0.9-3.2); Lymphocytes Percent Auto 32.6 % (18.3-44.2); Mean Corpuscular HGB Conc 33.6 g/dl (32-36); Mean Corpuscular Hemoglobin 33.2 pg (26-34); Mean Corpuscular Volume 98.7 fl (80-100); Mean Platelet Volume 8.7 fl (7.4-10.4); Monocytes Absolute Auto 0.6 K/mm3 (0.1-0.6); Monocytes Percent Auto 9.2 % (2.6-8.5); Neutrophils Absolute Auto 3.5 K/mm3 (1.3-6.7); Neutrophils Percent Auto 55.1 % (45.5-73.1); Platelet Count Result 239 k/mm3 (150-375); Red Blood Count 3.71 M/mm3 (4.2-5.4); Red Cell Distribution Width 11.8 % (11.5-14.5); White Blood Count 6.4 K/mm3 (4.5-10.0)
[2024-07-28 08:00] LABS: Alanine Aminotransferase 26 U/L (6-35); Albumin Level 4.4 g/dL (3.5-5.1); Alkaline Phosphatase 61 U/L (38-126); Anion Gap 9 mmol/L (4-12); Aspartate Amino Transferase 31 U/L (14-36); Bilirubin,Total 0.4 mg/dL (0.2-1.3); Blood Urea Nitrogen 27 mg/dL (7-17); Calcium 9.3 mg/dL (8.4-10.2); Carbon Dioxide 27 mmol/L (22-30); Chloride 105 mmol/L (98-107); Cholesterol 137 mg/dL (0-200); Estimated Glomerular Filt Rate 58; Glucose 96 mg/dL (65-110); HDL Direct 40 mg/dL; Potassium 3.7 mmol/L (3.4-5.0); Sodium 141 mmol/L (137-145); Triglycerides 149 mg/dL (<150)
[2024-07-28 08:11] LABS: LDL Cholesterol Direct 57 mg/dL
[2024-07-28 08:36] LABS: Hemoglobin A1C 5.4 % (<5.7)
[2024-07-28 09:14] LABS: Free T4 Free Thyroxine 1.12 ng/dL (0.78-2.19); Vitamin D 25 Hydroxy 65.6 ng/mL
== END 2024-07-28 06:50 | disposition home or self-care (01) ==
PROVIDERS: PCP Internal Medicine; Visit Provider Internal Medicine
DX: E78.2 Mixed hyperlipidemia (principal); R73.03 Prediabetes; E78.1 Pure hyperglyceridemia; R53.83 Other fatigue; Z79.899 Other long term (current) drug therapy; E78.01 Familial hypercholesterolemia; Z82.49 Family history of ischemic heart disease and other diseases of the circulatory system
CPT/HCPCS: 36415; 80053; 80061; 82306; 83036; 84439; 84443; 85025

== ENCOUNTER 2024-12-09 13:33 | Outpatient (CLI) | payer MEDICARE, SELFPAY ==
--- OUTSIDE RECORDS SUMMARY | 2024-12-09 13:36 | XMS_ITS | Clinical Summary ---
Author Organization [facility] Physician Office Building [address] [place] [phone] Care Team Providers Care Roller Helper Name Role Phone German Prabhakar MD Primary Care Provider [phone] Allergies Active Allergy Reactions Criticality Noted Date [...] (12/18/2019): Added automatically from request for surgery [id number] Primary osteoarthritis of both knees 02/11/2017 Assessment & Plan (02/11/2017 11:10 AM MERCHANT PATROLLER): Patient has reactive synovitis in the knees [...] on file Legal Sex Female 8:43 PM MERCHANT PATROLLER Gender Identity Not on file Sexual Orientation [...] 7:22 AM CDT Height 160 cm (5' 3) 12/27/2019 7:22 AM CDT Body Mass Index 31.89 12/27/2019 7:22 AM CDT Plan of Treatment Not on file Insurance MEDICARE ADVANTAGE [id number] Care Teams Roller Helper Relationship Specialty Start Date End Date German Prabhakar MD [address] [facility] [address] [facility] [address] [place] [address] PCP - General Internal Medicine 12/18/19
[2024-12-09 14:17] LABS: Anion Gap 6 mmol/L (4-12); Blood Urea Nitrogen 20 mg/dL (7-17); Calcium 9.5 mg/dL (8.4-10.2); Carbon Dioxide 30 mmol/L (22-30); Chloride 105 mmol/L (98-107); Cholesterol 122 mg/dL (0-200); Estimated Glomerular Filt Rate > 60; Glucose 106 mg/dL (65-110); HDL Direct 40 mg/dL; Potassium 3.9 mmol/L (3.4-5.0); Sodium 141 mmol/L (137-145); Triglycerides 133 mg/dL (<150)
[2024-12-09 14:36] LABS: Hemoglobin A1C 5.3 % (<5.7)
== END 2024-12-09 13:34 | disposition home or self-care (01) ==
LOC: ANHLAB 13:34
PROVIDERS: PCP Internal Medicine; Visit Provider Internal Medicine
DX: E78.2 Mixed hyperlipidemia (principal); Z79.899 Other long term (current) drug therapy; R73.03 Prediabetes
CPT/HCPCS: 36415; 80048; 80061; 83036

== ENCOUNTER 2025-01-03 09:05 | Outpatient (CLI) | payer MEDICARE, SELFPAY ==
--- NOTE | ~2025-01-03 | XR_ITS ---
EXAMINATION: XR abdomen/kub 1V, 01/03/2025 9:20 CDT HISTORY: R10.9 - Unspecified abdominal pain, BLOATING, PAIN X 2 DAYS COMPARISON: No comparisons available. Technique: 3 view. Findings: Bowel gas pattern unremarkable. No obstruction. No free air. No abnormal calcifications No acute osseous abnormality. Impression: 1. No acute abnormality. Reviewed, dictated and finalized at location P. Impression: 1. No acute abnormality.
--- OUTSIDE RECORDS SUMMARY | 2025-01-03 09:37 | XMS_ITS | Clinical Summary ---
Author Organization [facility] Physician Office Building [address] [place] [address] Care Team Providers Care Store Protection Specialist Name Role Phone German Prabhakar MD Primary Care Provider [phone] Allergies Active Allergy Reactions Criticality Noted Date [...] (12/18/2019): Added automatically from request for surgery [id number] Primary osteoarthritis of both knees 02/11/2017 Assessment & Plan (02/11/2017 11:10 AM CUPBOARD BUILDER): Patient has reactive synovitis in the knees [...] on file Legal Sex Female 8:43 PM CUPBOARD BUILDER Gender Identity Not on file Sexual Orientation [...] Not on file Insurance MEDICARE ADVANTAGE [id number] Care Teams Store Protection Specialist Relationship Specialty Start Date End Date German Prabhakar MD PCP - General Internal Medicine 12/18/19
[2025-01-03 09:54] LABS: Hematocrit 39.9 % (37.0-47.0); Hemoglobin 13.1 g/dL (12.0-15.0); Immature Granulocyte Percent A 0.4 % (0-0.5); Lymphocytes Absolute Auto 1.62 K/mm3 (0.9-3.2); Mean Corpuscular HGB Conc 32.8 g/dl (32-36); Mean Corpuscular Hemoglobin 32.6 pg (26-34); Mean Corpuscular Volume 99.3 fl (80-100); Nucleated Red Blood Cells Absolute Auto 0.000 K/mm3 (0.0-0.012); Nucleated Red Blood Cells Perc 0.0 % (0.0-0.2); Platelet Count Result 252 k/mm3 (150-375); Red Blood Count 4.02 M/mm3 (4.2-5.4); White Blood Count 8.4 K/mm3 (4.5-10.0)
[2025-01-03 10:14] LABS: Add Urine Microscopic? YES; Appearance Urine Clear (Clear); Glucose Urine UA Negative (Negative); Leukocyte Esterase Ur Negative LEU/UL (Negative); Nitrate Urine Negative (Negative); Specific Grav Ur 1.024 (1.001-1.035)
[2025-01-03 10:24] LABS: Alanine Aminotransferase 269 U/L (6-35); Albumin Level 4.6 g/dL (3.5-5.1); Alkaline Phosphatase 142 U/L (38-126); Anion Gap 9 mmol/L (4-12); Aspartate Amino Transferase 280 U/L (14-36); Bilirubin,Total 1.1 mg/dL (0.2-1.3); Blood Urea Nitrogen 23 mg/dL (7-17); Calcium 9.5 mg/dL (8.4-10.2); Carbon Dioxide 27 mmol/L (22-30); Chloride 104 mmol/L (98-107); Estimated Glomerular Filt Rate 51; Glucose 109 mg/dL (65-110); Potassium 3.6 mmol/L (3.4-5.0); Sodium 140 mmol/L (137-145); Total Protein 8.1 g/dL (6.3-8.2)
[2025-01-03 10:50] LABS: Amylase 84 U/L (30-110); Lipase 222 U/L (23-300)
== END 2025-01-03 09:06 | disposition home or self-care (01) ==
LOC: ANHIMG 09:10
PROVIDERS: PCP Internal Medicine; Visit Provider Internal Medicine
DX: R10.9 Unspecified abdominal pain (principal); R53.83 Other fatigue; Z79.899 Other long term (current) drug therapy; H81.10 Benign paroxysmal vertigo, unspecified ear
CPT/HCPCS: 36415; 74018; 80053; 81001; 82150; 83690; 85025

== ENCOUNTER 2025-01-03 11:18 | Emergency (ER) | payer MEDICARE, SELFPAY ==
--- NOTE | ~2025-01-03 | US_ITS ---
EXAMINATION: US abdomen limited DATE: 01/03/2025 13:45 INDICATION: Transaminitis TECHNIQUE: Multiple grayscale and Doppler ultrasound images of the abdomen were obtained. COMPARISON: None FINDINGS: The pancreatic head and body are normal in appearance. The pancreatic tail is not visualized. Visualized proximal inferior vena cava and aorta are normal. Liver has normal echogenicity and contour, with a smooth surface. 7 mm echogenic and shadowing coarse calcification in the right hepatic lobe seen on prior radiographs. No other liver lesions identified. No intrahepatic biliary duct dilation suspected. Portal venous flow was seen in the hepatopetal, normal direction and has normal Doppler waveform. Partially decompressed gallbladder. 4 mm on shadowing echogenic nodule along the nondependent gallbladder wall consistent with a small likely benign polyp. There is heterogeneous echogenicity to portions of the gallbladder wall thickening with internal echogenic foci and small hypoechoic regions with some associated parenchymal artifact on color Doppler imaging which should be most consistent with adenomyomatosis. No shadowing cholelithiasis. Common bile duct measures 4 mm in maximal diameter which is within normal limits. Sonographic Farr sign was reported as negative by the global marketing manager.Right kidney measures 10.5 x 5.1 x 5.6 cm with normal contour and echogenicity. Anechoic parapelvic cyst versus pelviectasis measuring 3.2 x 2.6 x 2.3 cm. No hydronephrosis at the right kidney. IMPRESSION: 1. Heterogeneous echogenicity along portion of the gallbladder wall with some associated parenchymal artifact consistent with adenomyomatosis. Likely benign 4 mm gallbladder polyp with no shadowing cholelithiasis, gallbladder dilation or sonographic Farr sign to suggest acute cholecystitis. 3. 7 mm coarse calcification in the liver likely sequela of old granulomatous disease. Otherwise normal liver with no intra or extrahepatic biliary ductal dilation. Reviewed, dictated and finalized at location A. IMPRESSION: 1. Heterogeneous echogenicity along portion of the gallbladder wall with some a ssociated parenchymal artifact consistent with adenomyomatosis. Likely benign 4 mm gallbladder polyp with no shadowing cholelithiasis, gallbladder dilation or sonographic Farr sign to suggest acute cholecystitis. 3. 7 mm coarse calcification in the liver likely sequela of old granulomatous d isease. Otherwise normal liver with no intra or extrahepatic biliary ductal dil ation.
[2025-01-03 11:23] VITALS: BP 133/65; PULSE 95; RESP 16; TEMP 36.5; O2SAT 97
--- OUTSIDE RECORDS SUMMARY | 2025-01-03 12:00 | XMS_ITS | Clinical Summary ---
Author Organization [facility] Physician Office Building [address] [place] [phone] Care Team Providers Care Chief Of Field Operations Name Role Phone German Prabhakar MD Primary Care Provider [phone] Allergies Active Allergy Reactions Criticality Noted Date [...] (12/18/2019): Added automatically from request for surgery [id number] Primary osteoarthritis of both knees 02/11/2017 Assessment & Plan (02/11/2017 11:10 AM DIRECTOR OF SCIENCE): Patient has reactive synovitis in the knees [...] on file Legal Sex Female 8:43 PM DIRECTOR OF SCIENCE Gender Identity Not on file Sexual Orientation [...] Not on file Insurance MEDICARE ADVANTAGE [id number] Care Teams Chief Of Field Operations Relationship Specialty Start Date End Date German Prabhakar MD PCP - General Internal Medicine 12/18/19
--- OUTSIDE RECORDS SUMMARY | 2025-01-03 12:00 | XMS_ITS | Clinical Summary ---
Author Organization [facility] Address [address] [place] [id number] Care Team Providers Care Health Care Marketing Specialist Name Role Phone German Prabhakar MD Primary Care Provider [phone] Social History Tobacco Use Types Packs/Day Years [...] 2018 Dexa Scan (General) 2018 COVID-19 Vaccine (2023-2 5 season) 2024 Influenza Adult (#1) 2025 01/04/2012 RSV Immunization or 60+ Years (1 - 1-dose 75+ series) 2028 Meningococcal B Vaccine Aged Out No l onger eligible based on patient's age to complete this topic Meningococcal Vaccine Aged Out No nic alice eligible based on patient's age to complete this topic RSV Immunizations Under 20 Months Aged Out No longer eligible based on patient's [place] [id number] [facility] MEDICARE Care Teams Health Care Marketing Specialist Relationship Specialty Start Date End Date German Prabhakar MD [address] [place] [address] PCP - General INTERNAL MEDICINE 07/23/22
[2025-01-03 12:13] LABS: Hematocrit 36.1 % (37.0-47.0); Hemoglobin 12.1 g/dL (12.0-15.0); Immature Granulocyte Percent A 0.1 % (0-0.5); Lymphocytes Absolute Auto 1.70 K/mm3 (0.9-3.2); Mean Corpuscular HGB Conc 33.5 g/dl (32-36); Mean Corpuscular Hemoglobin 32.6 pg (26-34); Mean Corpuscular Volume 97.3 fl (80-100); Nucleated Red Blood Cells Absolute Auto 0.000 K/mm3 (0.0-0.012); Nucleated Red Blood Cells Perc 0.0 % (0.0-0.2); Platelet Count Result 214 k/mm3 (150-375); Red Blood Count 3.71 M/mm3 (4.2-5.4); White Blood Count 6.9 K/mm3 (4.5-10.0)
--- OUTSIDE RECORDS SUMMARY | 2025-01-03 12:21 | XMS_ITS | Clinical Summary ---
Author Organization [facility] Physician Office Building [address] [place] [address] Care Team Providers Care Hostler Helper Name Role Phone German Prabhakar MD Primary Care Provider [phone] Allergies Active Allergy Reactions Criticality Noted Date [...] (12/18/2019): Added automatically from request for surgery [id number] Primary osteoarthritis of both knees 02/11/2017 Assessment & Plan (02/11/2017 11:10 AM INFLATED BALL MOLDER): Patient has reactive synovitis in the knees [...] on file Legal Sex Female 8:43 PM INFLATED BALL MOLDER Gender Identity Not on file Sexual Orientation [...] Treatment Not on file [place] [address] [id number] Care Teams Hostler Helper Relationship Specialty Start Date End Date German Prabhakar MD PCP - General Internal Medicine 12/18/19
--- OUTSIDE RECORDS SUMMARY | 2025-01-03 12:21 | XMS_ITS | Clinical Summary ---
Author Organization [facility] Address [address] [place] [address] Care Team Providers Care Hand Trucker Name Role Phone German Prabhakar MD Primary Care Provider [phone] Social History Tobacco Use Types Packs/Day Years [...] [place] [id number] [facility] MEDICARE Care Teams Hand Trucker Relationship Specialty Start Date End Date German Prabhakar MD [address] [place] [address] PCP - General INTERNAL MEDICINE 07/23/22
[2025-01-03 12:26] LABS: Alanine Aminotransferase 246 U/L (6-35); Albumin Level 4.4 g/dL (3.5-5.1); Alkaline Phosphatase 139 U/L (38-126); Anion Gap 10 mmol/L (4-12); Aspartate Amino Transferase 250 U/L (14-36); Bilirubin,Total 0.7 mg/dL (0.2-1.3); Blood Urea Nitrogen 23 mg/dL (7-17); Calcium 9.3 mg/dL (8.4-10.2); Carbon Dioxide 24 mmol/L (22-30); Chloride 105 mmol/L (98-107); Estimated CRCL calculation 47 ml/min; Estimated Glomerular Filt Rate 57; Glucose 114 mg/dL (65-110); Lipase 228 U/L (23-300); Potassium 3.7 mmol/L (3.4-5.0); Sodium 139 mmol/L (137-145); Total Protein 7.7 g/dL (6.3-8.2)
[2025-01-03 12:28] LABS: INR 1.2; Partial Thromboplastin Time 29.8 Seconds (22.3-36.8); Prothrombin Time 14.6 Seconds (11.1-14.7)
--- NOTE | 2025-01-03 12:39 | ED_ITS ---
HPI - General Adult General Chief complaint: Recheck/Abnormal Lab/Rx Stated complaint: Sent in for abnormal urine test Time Seen by Provider: 01/03/25 11:43 History of Present Illness HPI narrative: 69-year-old female presents to the emergency department for evaluation for abnormal labs that were checked by her primary care physician. Patient did have multiple days of abdominal distension and patient suspected that she did have some gastroparesis. Patient does take GLP 1 inhibitor. Related Data Home Medications ?Medication ?Instructions ?Recorded ?Confirmed ?Last Taken ?Type cholecalciferol (vitamin D3) 125 125 mcg PO DAILY 09/0412/11/24 05/09/23 History mcg (5,000 unit) tablet (Vitamin D3) naproxen sodium 220 mg capsule 220 mg PO Q12H 09/27/19 12/11/24 Unknown History (Aleve) cyanocobalamin (vitamin B-12) 1,000 mcg PO DAILY 10/0112/11/24 05/09/23 History 1,000 mcg tablet (Vitamin B-12) aspirin 81 mg chewable tablet 81 mg PO DAILY 12/14/22 12/11/24 05/11/23 History semaglutide subcut 07/31/24 12/11/24 Unk nown History Allergies Allergy/AdvReac Type Severity Reaction Status Date / Time cortisone Allergy Joint Pain Verified 12/11/24 08:59 tetracycline Allergy Joint Pain Verified 12/11/24 08:59 MALKA Inhibitors AdvReac Severe Depression Verified 12/11/24 08:59 hydrochlorothiazide AdvReac Severe Depression Verified 12/11/24 08:59 statin intolerant Allergy Unknown leg pain Uncoded 12/11/24 08:59 Review of Systems 2 Review of Systems: All systems reviewed & are unremarkable except as noted in HPI and below PMFSH Past Medical History Medical History (Updated 01/03/25 @ 14:10 by Binu Bright MD) BMI 31.0-31.9,adult Cataract Preoperative clearance Non-healing skin lesion Colon cancer screening Hx of colonic polyps Episodic headache Follow up Hypertension Visual loss FHx: heart disease BMI 32.0-32.9,adult Pneumonia Cough Shortness of breath BMI 34.0-34.9,adult Encounter for Medicare annual wellness exam BMI 33.0-33.9,adult Familial hypercholesterolemia Chronic low back pain with left-sided sciatica spondylosis rima L3/L4, L4/L5 facet osteoarthritis at L3/L4, L4/L5, L5/S1 Polyarthritis Pre-diabetes Statin intolerance Encounter for routine adult health examination without abnormal findings On vermin exterminator drug therapy Need for influenza vaccination History of tobacco abuse Per Dr. Prabhakar- Remote History Eczema Elevated homocysteine Mixed hyperlipidemia Knee pain, left DJD (degenerative joint disease) BPPV (benign paroxysmal positional vertigo) History of pneumonia History of kidney stones Narcolepsy Skin cancer Colonic polyp Restless leg Surgical History Surgical History (Reviewed 12/11/24 @ 09:04 by Ana Lilia Ballesteros [facility]) History of fusion of cervical spine History of tonsillectomy Family History Family History (Reviewed 12/11/24 @ 09:04 by Ana Lilia Ballesteros [facility]) Mother Diabetes mellitus CHF (congestive heart failure) Pacemaker Father Aneurysm Cerebrovascular accident Hx of CABG Other Shortness of breath Social History Social History (Reviewed 10/12/24 @ 08:25 by Ana Lilia Ballesterso [facility]) Years smoked: 25 Smoking status: Never smoker Second hand tobacco smoke exposure: Yes Smoking end date: 04/05/99 Alcohol intake: never Alcohol use details: occassional Substance use: never Substance use type: does not use Lack of Transportation: No Lack of Food: Never True Current Housing: I Have Housing Concerned About Future Housing: No Difficulty Paying Gas/Electric Bills: No Difficulty Paying for Meds: No Currently Unemployed: No Education: Associate Degree Difficulty w/ Childcare or Family Care: No Living arrangements: with family Gender identity (if verbalized by the patient): Female Spiritual care concerns: No Exam 2 Narrative: APPEARANCE: Well appearing, no pain, no distress, well-nourished. HEAD: normocephalic, atraumatic. EYES: PERRLA/EOMI, conjunctivae clear. NOSE: Normal no drainage EARS:TMS clear with good light reflex. THROAT: Pharynx clear, no exudate. NECK: Supple. No adenopathy, no masses. RESPIRATORY: Airway patent, respirations nonlabored. Clear to auscultation bilaterally, no rales, rhonchi, wheezing. CARDIOVASCULAR: Regular rate and rhythm without murmurs rubs or gallops. ABDOMINAL: Soft, nontender, nondistended, normal bowel sounds MUSCULOSKELETAL: Moves all extremities. Strength/ROM intact, No edema, No calf tenderness. NEURO: Alert. Cranial nerves II through XII intact. Good gait. Good coordination SKIN: Warm, dry. Normal Color Course Vital Signs Vital signs: Vital Signs Temperature 97.7 F 01/03/25 11:23 Pulse Rate 95 01/03/25 11:23 Respiratory Rate 16 01/03/25 11:23 Blood Pressure 133/65 01/03/25 11:23 Pulse Oximetry 97 01/03/25 11:23 Oxygen Delivery Room Air 01/03/25 11:23 Temperature 97.7 F 01/03/25 11:23 Pulse Rate 90 01/03/25 14:25 Respiratory Rate 16 01/03/25 14:25 Blood Pressure 120/63 01/03/25 14:25 Pulse Oximetry 100 01/03/25 14:25 Oxygen Delivery Room Air 01/03/25 11:23 Medical Decision Making MDM Narrative Medical decision making narrative: 69-year-old female presents to the emergency department for evaluation for abnormal labs. Patient did have her kidney function checked by primary care physician and it was slightly impaired. Patient repeat kidney function today is improved. Patient did have an outpatient x-ray that showed no acute abnormality. On room evaluation in our emergency department patient has no abdominal tenderness to palpation. Patient is afebrile with no leukocytosis hemoglobin of 12.1. Patient has an INR of 1.2. Patient has a negative lactic acid and a normal lipase. Patient does have mild elevation in her AST ALT and alk-phos Differential Diagnosis Differential Diagnosis: Colitis, diverticulitis, appendicitis, pancreatitis, acute kidney injury, dehydration, ileus, small-bowel obstruction Vital Signs Vital Signs: Vital Signs Temperature 97.7 F 01/03/25 11:23 Pulse Rate 95 01/03/25 11:23 Respiratory Rate 16 01/03/25 11:23 Blood Pressure 133/65 01/03/25 11:23 Pulse Oximetry 97 01/03/25 11:23 Oxygen Delivery Room Air 01/03/25 11:23 Temperature 97.7 F 01/03/25 11:23 Pulse Rate 90 01/03/25 14:25 Respiratory Rate 16 01/03/25 14:25 Blood Pressure 120/63 01/03/25 14:25 Pulse Oximetry 100 01/03/25 14:25 Oxygen Delivery Room Air 01/03/25 11:23 Lab Data Lab results reviewed: Yes I reviewed the patient's lab results. 01/03/25 12:06 01/03/25 12:06 Labs: Lab Results 01/03/25 Range/Units 12:06 WBC 6.9 (4.5-10.0) K/mm3 RBC 3.71 L (4.2-5.4) M/mm3 Hgb 12.1 (12.0-15.0) g/dL Hct 36.1 L (37.0-47.0) % MCV 97.3 (80-100) fl MCH 32.6 (26-34) pg MCHC 33.5 (32-36) g/dl RDW 12.2 (11.5-14.5) % Plt Count 214 (150-375) k/mm3 MPV 8.3 (7.4-10.4) fl Immature Gran % (Auto) 0.1 (0-0.5) % Neut % (Auto) 66.7 (45.5-73.1) % Lymph % (Auto) 24.7 (18.3-44.2) % [place] % (Auto) 6.0 (2.6-8.5) % Eos % (Auto) 1.9 (0-4.4) % Baso % (Auto) 0.6 (0.2-1.2) % Lymph # (Auto) 1.70 (0.9-3.2) K/mm3 [place] # (Auto) 0.4 (0.1-0.6) K/mm3 Eos # (Auto) 0.1 (0-0.3) K/mm3 Baso # (Auto) 0.0 (0.0-0.1) K/mm3 Abs Immat Gran (auto) 0.01 (0.00-0.031) K/mm3 Absolute Neuts (auto) 4.6 (1.3-6.7) K/mm3 Absolute Nucleated RBC 0.000 (0.0-0.012) K/mm3 Nucleated RBC % 0.0 (0.0-0.2) % PT 14.6 (11.1-14.7) Seconds INR 1.2 APTT 29.8 (22.3-36.8) Seconds Sodium 139 (137-145) mmol/L Potassium 3.7 (3.4-5.0) mmol/L Chloride 105 (98-107) mmol/L Carbon Dioxide 24 (22-30) mmol/L Anion Gap 10 (4-12) mmol/L BUN 23 H (7-17) mg/dL Creatinine 0.96 (0.7-1.0) mg/dL Estim Creat Clear Calc 47 ml/min Estimated GFR 57 L (59 - ) Glucose 114 H (65-110) mg/dL Lactic Acid 0.7 (0.7-2.0) mmol/L Calcium 9.3 (8.4-10.2) mg/dL Total Bilirubin 0.7 (0.2-1.3) mg/dL AST 250 H (14-36) U/L ALT 246 H (6-35) U/L Alkaline Phosphatase 139 H (38-126) U/L Total Protein 7.7 (6.3-8.2) g/dL Albumin 4.4 (3.5-5.1) g/dL Lipase 228 (23-300) U/L Imaging Data Radiologist's impression: Impressions Abdomen Ultrasound 01/03/25 13:53 IMPRESSION: 1. Heterogeneous echogenicity along portion of the gallbladder wall with some associated parenchymal artifact consistent with adenomyomatosis. Likely benign 4 mm gallbladder polyp with no shadowing cholelithiasis, gallbladder dilation or sonographic Farr sign to suggest acute cholecystitis. 3. 7 mm coarse calcification in the liver likely sequela of old granulomatous disease. Otherwise normal liver with no intra or extrahepatic biliary ductal dilation. Discharge Plan Discharge Clinical Impression: Transaminitis Patient Disposition: Home Condition: Stable Instructions: Antibiotic Form Additional Instructions: have close follow-up with your primary care physician. If you have any worsening symptoms please call or return to the emergency department. Patient Language: Solomon Islander Prescriptions: No Action semaglutide subcut Rx Instructions: does- 1.15. Once weekly. omega-3 fatty acids [Fish Oil Concentrate] 1,000 mg capsule 2,000 mg PO BID Qty: 180 0RF triamcinolone acetonide 0.5 % cream 1 applic TOPICAL BID Qty: 60 2RF aspirin 81 mg tablet,chewable 81 mg PO DAILY cholecalciferol (vitamin D3) [Vitamin D3] 125 mcg (5,000 unit) Tablet 125 mcg PO DAILY naproxen sodium [Aleve] 220 mg Capsule 220 mg PO Q12H cyanocobalamin (vitamin B-12) [Vitamin B-12] 1,000 mcg tablet 1,000 mcg PO DAILY pramipexole 1 mg tablet 1 mg PO BID Qty: 180 2RF Nexlizet 180-10 mg tablet 1 tablet PO DAILY Qty: 90 1RF folic acid 1 mg tablet See Rx Instructions .ROUTE .COMPLEX Qty: 90 1RF Dose Instruction: TAKE 1 TABLET BY MOUTH DAILY Rx Instructions: TAKE 1 TABLET BY MOUTH DAILY gabapentin 100 mg capsule See Rx Instructions .ROUTE .COMPLEX Qty: 180 0RF Dose Instruction: TAKE 2 CAPSULES BY MOUTH THREE TIMES DAILY Rx Instructions: TAKE 2 CAPSULES BY MOUTH THREE TIMES DAILY Follow-up/Referrals: German Prabhakar MD [Primary Care Provider, Internal Medicine]
[2025-01-03 14:25] VITALS: BP 120/63; PULSE 90; RESP 16; O2SAT 100
== END 2025-01-03 14:25 | disposition home or self-care (01) ==
PROVIDERS: Emergency Provider Emergency Medicine; PCP Internal Medicine
DX: R74.01 Elevation of levels of liver transaminase levels (principal); I10 Essential (primary) hypertension; R73.03 Prediabetes; E78.2 Mixed hyperlipidemia; G25.81 Restless legs syndrome; Z98.1 Arthrodesis status; Z87.442 Personal history of urinary calculi; Z85.828 Personal history of other malignant neoplasm of skin; Z87.01 Personal history of pneumonia (recurrent); Z86.0100 Personal history of colon polyps, unspecified; Z87.891 Personal history of nicotine dependence; Z79.82 Long term (current) use of aspirin; Z79.899 Other long term (current) drug therapy; Z79.85 Long-term (current) use of injectable non-insulin antidiabetic drugs; R93.2 Abnormal findings on diagnostic imaging of liver and biliary tract
CPT/HCPCS: 36415; 76705; 80053; 83605; 83690; 85025; 85610; 85730; 99284

== ENCOUNTER 2025-01-04 11:12 | Outpatient (CLI) | payer MEDICARE, SELFPAY ==
--- OUTSIDE RECORDS SUMMARY | 2025-01-04 11:42 | XMS_ITS | Clinical Summary ---
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
[2025-01-04 11:58] LABS: Alanine Aminotransferase 178 U/L (6-35); Albumin Level 4.3 g/dL (3.5-5.1); Alkaline Phosphatase 122 U/L (38-126); Aspartate Amino Transferase 126 U/L (14-36); Bilirubin,Total 0.4 mg/dL (0.2-1.3); Total Protein 7.6 g/dL (6.3-8.2)
[2025-01-04 12:30] LABS: Hepatitis B Surface Antigen Negative (Negative)
[2025-01-04 12:36] LABS: HAV RESULT Negative (Negative); Hepatitis B Core IgM Result Negative (Negative)
[2025-01-05 10:08] LABS: GGT 391 IU/L (0-60)
== END 2025-01-04 11:13 | disposition home or self-care (01) ==
LOC: ANHLAB 11:16
PROVIDERS: PCP Internal Medicine; Visit Provider Internal Medicine
DX: R10.9 Unspecified abdominal pain (principal); R74.8 Abnormal levels of other serum enzymes
CPT/HCPCS: 36415; 80074; 80076; 82977

== ENCOUNTER 2025-01-08 06:37 | Outpatient (CLI) | payer MEDICARE, SELFPAY ==
--- OUTSIDE RECORDS SUMMARY | 2025-01-08 06:41 | XMS_ITS | Clinical Summary ---
Author Organization [facility] Address [address] [place] [id number] Care Team Providers Care Bottle Labeler Name Role Phone German Prabhakar MD Primary Care Provider [phone] Social History Tobacco Use Types Packs/Day Years [...] [place] [id number] [facility] MEDICARE Care Teams Bottle Labeler Relationship Specialty Start Date End Date German Prabhakar MD [address] [place] [address] PCP - General INTERNAL MEDICINE 07/23/22
--- OUTSIDE RECORDS SUMMARY | 2025-01-08 06:41 | XMS_ITS | Clinical Summary ---
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 MEDICARE Address: [facility] [address] [place] [id number] Care Teams Fire Alarm Inspector Relationship Specialty Start Date End Date German Prabhakar MD PCP - General Internal Medicine 12/18/19
[2025-01-08 07:56] LABS: Alanine Aminotransferase 74 U/L (6-35); Albumin Level 4.3 g/dL (3.5-5.1); Alkaline Phosphatase 96 U/L (38-126); Aspartate Amino Transferase 49 U/L (14-36); Bilirubin,Total 0.5 mg/dL (0.2-1.3); Total Protein 7.5 g/dL (6.3-8.2)
== END 2025-01-08 06:38 | disposition home or self-care (01) ==
LOC: ANHLAB 06:39
PROVIDERS: PCP Internal Medicine; Visit Provider Internal Medicine
DX: R10.9 Unspecified abdominal pain (principal)
CPT/HCPCS: 36415; 80076

== ENCOUNTER 2025-02-01 06:34 | Outpatient (CLI) | payer MEDICARE, SELFPAY ==
--- NOTE | ~2025-02-01 | CT_ITS ---
EXAMINATION: CT abdomen w con DATE: 02/01/2025 07:15 INDICATION: Generalized abdominal pain. TECHNIQUE: Computed tomography (CT) of the abdomen was performed with 100 mL Omnipaque 350 intravenous contrast. Automated exposure control and iterative reconstruction technique were employed. The dose-length product was 356.17 mGy-cm. COMPARISON: None. FINDINGS: The visualized portions of the lung bases demonstrate mild atelectasis. No pleural effusion. The heart size is normal. There are coronary artery calcifications. No pericardial effusion. The liver, gallbladder, spleen, pancreas, and adrenal glands are normal. There are cysts in the kidneys meaghan suring up to 3.0 cm on the right. There is diverticulosis of the colon without evidence of diverticulitis. The appendix is normal. There are no pathologically enlarged lymph nodes. There is no free intraperitoneal fluid. There is moderate thoracic spondylosis and severe lumbar spondylosis. IMPRESSION: 1. No specific etiology for the patient's symptoms. Reviewed, dictated and finalized at location E.
--- OUTSIDE RECORDS SUMMARY | 2025-02-01 06:38 | XMS_ITS | Clinical Summary ---
Author Organization [facility] [address] [place] [id number] Care Team Providers Care Laboratory Machinist Name Role Phone German Prabhakar MD Primary Care Provider [phone] Allergies Active Allergy Reactions Criticality Noted Date [...] (12/18/2019): Added automatically from request for surgery [id number] Primary osteoarthritis of both knees 02/11/2017 Assessment & Plan (02/11/2017 11:10 AM INTERNATIONAL STUDENT ADVISOR): Patient has reactive synovitis in the knees [...] on file Legal Sex Female 8:43 PM INTERNATIONAL STUDENT ADVISOR Gender Identity Not on file Sexual Orientation [...] Not on file Insurance MEDICARE ADVANTAGE [id number] Care Teams Laboratory Machinist Relationship Specialty Start Date End Date German Prabhakar MD PCP - General Internal Medicine 12/18/19
[2025-02-01 08:33] LABS: Alanine Aminotransferase 20 U/L (6-35); Albumin Level 4.1 g/dL (3.5-5.1); Alkaline Phosphatase 60 U/L (38-126); Amylase 72 U/L (30-110); Aspartate Amino Transferase 33 U/L (14-36); Bilirubin,Total 0.4 mg/dL (0.2-1.3); Lipase 195 U/L (23-300); Total Protein 6.9 g/dL (6.3-8.2)
== END 2025-02-01 06:35 | disposition home or self-care (01) ==
PROVIDERS: PCP Internal Medicine; Visit Provider Internal Medicine
DX: R79.89 Other specified abnormal findings of blood chemistry (principal)
CPT/HCPCS: 36415; 74160; 80076; 82150; 83690; Q9967

== ENCOUNTER 2025-02-02 06:42 | Outpatient (CLI) | payer MEDICARE, SELFPAY ==
--- NOTE | ~2025-02-02 | NM_ITS ---
EXAMINATION: NM_HEPATWE_NM DATE: 02/02/2025 10:01 INDICATION: Abdominal pain. COMPARISON: CT abdomen 02/01/2025 TECHNIQUE: 4.9 mCi Tc-99m mebrofenin (Choletec) was administered intravenously. Scintigraphic images of the abdomen were obtained for one hour. Then, the patient drank 8 oz Ensure, and imaging was continued for 60 minutes. FINDINGS: There is normal clearance of radiotracer from the blood pool. There is homogeneous tracer uptake by the liver. Activity progresses to the bowel and gallbladder. Gallbladder ejection fraction (GBEF) was 81%. Note that with this technique, normal GBEF >= 33%. IMPRESSION: 1. Normal hepatobiliary scintigraphy. Reviewed, dictated and finalized at location E.
--- OUTSIDE RECORDS SUMMARY | 2025-02-02 06:45 | XMS_ITS | Clinical Summary ---
Author Organization [facility] [address] [place] [id number] Care Team Providers Care Concrete Spreader Name Role Phone German Prabhakar MD Primary Care Provider [phone] Allergies Active Allergy Reactions Criticality Noted Date [...] (12/18/2019): Added automatically from request for surgery [id number] Primary osteoarthritis of both knees 02/11/2017 Assessment & Plan (02/11/2017 11:10 AM LEAD CASE MANAGER): Patient has reactive synovitis in the knees [...] on file Legal Sex Female 8:43 PM LEAD CASE MANAGER Gender Identity Not on file Sexual Orientation [...] Insurance MEDICARE ADVANTAGE [facility] MEDICARE Address: [facility] [address] [place] [id number] Care Teams Concrete Spreader Relationship Specialty Start Date End Date German Prabhakar MD PCP - General Internal Medicine 12/18/19
== END 2025-02-02 06:43 | disposition home or self-care (01) ==
PROVIDERS: PCP Internal Medicine; Visit Provider Internal Medicine
DX: R10.84 Generalized abdominal pain (principal); R79.89 Other specified abnormal findings of blood chemistry; R11.2 Nausea with vomiting, unspecified
CPT/HCPCS: 78226; A9537